=== PATIENT | male | born 1965 | race Caucasian/White ===

== ENCOUNTER 2017-11-30 10:14 | Emergency (ER) | payer OTHER, SELFPAY ==
[2017-11-30 10:35] VITALS: BP 147/94; PULSE 98; RESP 20; TEMP 36.4; O2SAT 97; BMI 39.1
[2017-11-30 10:48] LABS: POC Glucose,Bedside 283 mg/dL
--- NOTE | 2017-11-30 10:53 | HMH.EDUTC ---
[facility] [place] Disposition Clinical Impression: Reflux pharyngitis Uncontrolled diabetes mellitus Qualifiers: Diabetes mellitus type: type 2 Diabetes mellitus complication status: with hyperglycemia Diabetes mellitus detention insulin use: without detention use Qualified Code(s): E11.65 - Type 2 diabetes mellitus with hyperglycemia Disposition: Home, Self-Care Condition on Discharge: Good Instructions: DI for Chest Pain, DI for Gastroesophageal Reflux Disease (GERD), DI for Diabetes Type 2, Lifestyle Changes as Effective as Drugs in Preventing Progression to Diabet Additional Instructions: Start omeprazole for what seems like acid reflux Seek treatment IMMEDIATELY for new, worsening or change in chest pain. you understand we did NOT rule out a cardiac cause today. You were offered a transfer to ER for this and declined. Follow up VERY important. Go TODAY and find a new PCP and schedule new patient appointment Be sure to communicate with your PCP. IF they don't know the medications are not agreeing with you or are too expensive, they can't find a better alternative for you. Remember the complications of uncontrolled DM that explain the majority of your symptoms. We discussed the risks and you need to get your diabetes under control IMMEDIATELY. Prescriptions: Omeprazole [Omeprazole 20mg Capsule] 20 mg PO DAILY #30 cap Time of Disposition: 11:37 Medical Decision Making Vital Signs: 11/30/17 10:35 Temperature 97.6 F Temperature Source Temporal Artery Scan Pulse Rate [Brachial] 98 H Respiratory Rate 20 Blood Pressure [Left Arm] 147/94 Blood Pressure Mean [Left Arm] 111 Blood Pressure Source [Left Arm] Automatic Cuff Blood Pressure Position [Left Arm] Sitting 02 Sat by Pulse Oximetry 97 Oxygen Delivery Method Room Air - Lab Data Lab results reviewed: Yes: I reviewed the patient's lab results. Lab Results 11/30/17 10:40: POC Glucose 283 11/30/17 10:41: Glucose Fingerstick 283 H Orders (Tests/Meds): ED MEDICATIONS Discontinued Medications Generic Name Dose Route Start Last Admin Trade Name Freq PRN Reason Stop Dose Admin Belladonna Alkaloids 60 ml 11/30/17 10:52 11/30/17 10:59 Gi Cocktail 60ml Udc PO 11/30/17 10:53 60 ml ONCE ONE Administration - Enoc Inquiry Pt receiving controlled substance: No - Reevaluation(s) Time: 11:25 Reevaluation #1: Pt reports chest pain improved with GI cocktail but not resolved. We discussed possible differentials. Pt does NOT want to transfer to ER at this time to r/o cardiac pain. He and his state they understand the risks and plans to find a PCP today while at hospital. He agrees that if pain worsens or changes and/or if new symptoms begin, he will report to ER immediately as directed. [facility] [place] HPI - General Stated complaint: CONGESTED HIGH SUGAR Time Seen by Provider: 11/30/17 10:40 Mode of Arrival: Ambulatory Source of Information: Patient Limitations: No Limitations Description of Symptoms (Recalled from Triage Doc. by RN): DOESN'T FEEL WELL MAYBE HIS SUGAR IS HIGH. HAS NOT TAKEN HIS DIABETIC MEDICINIE SINCE AROUND ANGE. IT COST TO MUCH. HEENT Symptoms (Recalled from RN notes): No Resp Symptoms (Recalled from RN notes): No Skin Symptoms (Recalled from RN notes): No MS Symptoms (Recalled from RN notes): No Functional Status (Recalled from RN notes): NA - History of Present Illness Provider Complaint: c/o just not feeling well . Initially reports ongoing x 2-3 days but then the more he talks, actually ongoing for weeks and some symptoms, months. Primarily here because he read a sign yesterday at his dad's appt about the sings of a heart attack and wants to be sure that he isn't having one and that his blood sugar is ok. (I immediately intervened and discussed [facility] Guidelines and transfer to ER for cardiac workup. Pt refused because heard his insurance wouldn't pay if it was nothing . Wants to be fully evaluated before deciding about ER.) Wo
--- NOTE | 2017-11-30 11:01 | ED_ITS ---
[facility] [place]ression: Reflux pharyngitis Uncontrolled diabetes mellitus Qualifiers: Diabetes mellitus type: type 2 Diabetes mellitus complication status: with hyperglycemia Diabetes mellitus roasterman insulin use: without senior care use Qualified Code(s): E11.65 - Type 2 diabetes mellitus with hyperglycemia Disposition: Home, Self-Care Condition on Discharge: Good Instructions: DI for Chest Pain, DI for Gastroesophageal Reflux Disease (GERD) , DI for Diabetes Type 2, Lifestyle Changes as Effective as Drugs in Preventing Progression to Diabet Additional Instructions: Start omeprazole for what seems like acid reflux Seek treatment IMMEDIATELY for new, worsening or change in chest pain. you understand we did NOT rule out a cardiac cause today. You were offered a transfer to ER for this and declined. Follow up VERY important. Go TODAY and find a new PCP and schedule new patient appointment Be sure to communicate with your PCP. IF they don't know the medications are not agreeing with you or are too expensive, they can't find a better alternative for you. Remember the complications of uncontrolled DM that explain the majority of your symptoms. We discussed the risks and you need to get your diabetes under control IMMEDIATELY. Prescriptions: Omeprazole [Omeprazole 20mg Capsule] 20 mg PO DAILY #30 cap Time of Disposition: 11:37 Medical Decision Making Vital Signs: 11/30/17 10:35 Temperature 97.6 F Temperature Source Temporal Artery Scan Pulse Rate [Brachial] 98 H Respiratory Rate 20 Blood Pressure [Left Arm] 147/94 Blood Pressure Mean [Left Arm] 111 Blood Pressure Source [Left Arm] Automatic Cuff Blood Pressure Position [Left Arm] Sitting 02 Sat by Pulse Oximetry 97 Oxygen Delivery Method Room Air - Lab Data Lab results reviewed: Yes: I reviewed the patient's lab results. Lab Results 11/30/17 10:40: POC Glucose 283 11/30/17 10:41: Glucose Fingerstick 283 H Orders (Tests/Meds): ED MEDICATIONS Discontinued Medications Generic Name Dose Route Start Last Admin Trade Name Freq PRN Reason Stop Dose Admin Belladonna Alkaloids 60 ml 11/30/17 10:52 11/30/17 10:59 Gi Cocktail 60ml Udc PO 11/30/17 10:53 60 ml ONCE ONE Administration - Enoc Inquiry Pt receiving controlled substance: No - Reevaluation(s) Time: 11:25 Reevaluation #1: Pt reports chest pain improved with GI cocktail but not resolved. We discussed possible differentials. Pt does NOT want to transfer to ER at this time to r/o cardiac pain. He and his state they understand the risks and plans to find a PCP today while at hospital. He agrees that if pain worsens or changes and/or if new symptoms begin, he will report to ER immediately as directed. [facility] [place] General Stated complaint: CONGESTED HIGH SUGAR Time Seen by Provider: 11/30/17 10:40 Mode of Arrival: Ambulatory Source of Information: Patient Limitations: No Limitations Description of Symptoms (Recalled from Triage Doc. by RN): DOESN'T FEEL WELL MAYBE HIS SUGAR IS HIGH. HAS NOT TAKEN HIS DIABETIC MEDICINIE SINCE AROUND ANGE. IT COST TO MUCH. HEENT Symptoms (Recalled from RN notes): No Resp Symptoms (Recalled from RN notes): No Skin Symptoms (Recalled from RN notes): No MS Symptoms (Recalled from RN notes): No Functional Status (Recalled from RN notes): NA - History of Present Illness Pro
== END 2017-11-30 11:39 | disposition home or self-care (01) ==
PROVIDERS: Emergency Provider Nurse Practitioner Family
DX: E11.65 Type 2 diabetes mellitus with hyperglycemia (principal); J02.9 Acute pharyngitis, unspecified; K21.9 Gastro-esophageal reflux disease without esophagitis; T38.3X6A Underdosing of insulin and oral hypoglycemic [antidiabetic] drugs, initial encounter; Z91.120 Patient's intentional underdosing of medication regimen due to financial hardship; I10 Essential (primary) hypertension; F17.210 Nicotine dependence, cigarettes, uncomplicated; E78.5 Hyperlipidemia, unspecified; Z79.02 Long term (current) use of antithrombotics/antiplatelets; Z79.899 Other long term (current) drug therapy; Z88.0 Allergy status to penicillin
CPT/HCPCS: 82962; 99202

== ENCOUNTER 2017-12-01 23:33 | Observation (INO) | payer OTHER, SELFPAY ==
[2017-12-01 23:33] VITALS: BP 157/84; PULSE 88; RESP 18; TEMP 36.8; O2SAT 97; BMI 39.1
--- NOTE | 2017-12-01 23:42 | XR_ITS ---
XR chest 2V HISTORY: ITS.REASON: CHEST PAIN ORDERING PHYSICIAN: Evens Fletcher MD PATIENT AGE: 52 years COMPARISON: None available FINDINGS: The cardiomediastinal silhouette and pulmonary vascularity are within normal limits. The lungs are clear without infiltrates, suspicious nodules, or pleural effusions. No acute bony abnormalities. IMPRESSION: Negative chest, no acute finding
--- NOTE | 2017-12-01 23:48 | PC.NURSE ---
PT REPORTS HE IS ALLERGIC TO ASA AND THAT HE BREAKS OUT IN A RASH ALL OVER
[2017-12-02] VITALS (29 sets, daily range): BP systolic 108–151; BP diastolic 60–96; PULSE 47–100; RESP 18–20; TEMP 36.4–36.7; O2SAT 94–98; BMI 38.4; BMI 38.5
[2017-12-02 00:18] LABS: Basophils # 0.1 K/mm3 (0-0.2); Basophils % 0.5 % (0.1-2.0); Eosinophils # 0.3 K/mm3 (0.0-0.4); Eosinophils % 3.1 % (0.1-12.0); Lymphocytes # 2.3 K/mm3 (0.7-4.5); Lymphocytes % 20.2 K/mm3 (10-50); Mean Corpuscular HGB Conc 31.8 g/dL (31.8-35.4); Mean Corpuscular Hemoglobin 27.7 pg (27.0-31.2); Mean Corpuscular Volume 87.1 fl (80-94); Mean Platelet Volume 8.5 fl (7.4-10.4); Monocytes # 0.5 K/mm3 (0.1-1.0); Monocytes % 4.5 % (1.7-9.3); Neutrophils # 8.1 K/mm3 (1.8-7.8); Neutrophils % 71.8 % (37.0-80.0); Platelet Count 224 K/mm3 (142-424); Red Cell Distribution Width 13.2 % (11.5-17.5); White Blood Count 11.3 K/mm3 (4.8-10.8)
--- NOTE | 2017-12-02 00:19 | HMH.EDCP ---
ED Disposition Clinical Impression: New onset atrial fibrillation, Near syncope Chest pain Qualifiers: Chest pain type: other chest pain Qualified Code(s): R07.89 - Other chest pain Disposition: Admitted As Inpatient Condition on Discharge: Fair Time of Disposition: 01:52 - Critical Care Critical Care Time: No Attestation: On 12/01/17, the high probability of a clinically significant, sudden or life threatening deterioration of the following system(s) required my full and direct attention, intervention and personal management. The time I documented below is in addition to time spent performing reported procedures but includes the following listed in this critical care notation. Medical Decision Making - Medical Records Medical records reviewed: Yes: I reviewed the patient's medical records. Vital Signs: 12/01/17 23:33 12/02/17 02:37 12/02/17 03:16 Temperature 98.3 F Temperature Source Oral Pulse Rate 80 Pulse Rate [Right Radial] 88 Respiratory Rate 18 Blood Pressure [Right Arm] 157/84 Blood Pressure Mean [Right Arm] 108 Blood Pressure Source [Right Arm] Automatic Cuff Blood Pressure Position [Right Arm] Sitting 02 Sat by Pulse Oximetry 97 98 Oxygen Delivery Method Room Air Room Air 12/02/17 03:26 Temperature 97.6 F Temperature Source Oral Pulse Rate Pulse Rate [Right Radial] 82 Respiratory Rate 20 Blood Pressure [Right Arm] 142/81 Blood Pressure Mean [Right Arm] 101 Blood Pressure Source [Right Arm] Automatic Cuff Blood Pressure Position [Right Arm] Sitting 02 Sat by Pulse Oximetry 98 Oxygen Delivery Method Room Air - Lab Data Lab results reviewed: Yes: I reviewed the patient's lab results. Lab Results 12/01/17 23:50: WBC 11.3 H, RBC 5.40, Hgb 15.0, Hct 47.0, MCV 87.1, MCH 27.7, MCHC 31.8, RDW 13.2, Plt Count 224, MPV 8.5, Neut % (Auto) 71.8, Lymph % (Auto) 20.2, [place] % (Auto) 4.5, Eos % (Auto) 3.1, Baso % (Auto) 0.5, Neut # (Auto) 8.1 H, Lymph # (Auto) 2.3, [place] # (Auto) 0.5, Eos # (Auto) 0.3, Baso # (Auto) 0.1 12/01/17 23:50: Sodium 133 L, Potassium 3.6, Chloride 100, Carbon Dioxide 28, Anion Gap 8.6, BUN 10, Creatinine 0.82, Estimated Creat Clear 183, Estimated GFR 99, Est GFR ( Amer) 120, Glucose 300 H, Calcium 8.1 L, Total Bilirubin 0.5, AST 13 L, ALT 29, Alkaline Phosphatase 92, Total Creatine Kinase 70, CK-MB (CK-2) 0.7, CK-MB (CK-2) Rel Index 1.0, Troponin I < 0.02, Total Protein 6.8, Albumin 3.4, Globulin 3.4 H, Albumin/Globulin Ratio 1.0 L 12/02/17 00:00: Amylase 25, Lipase 133, TSH 4.19 H 12/02/17 00:00: D-Dimer < 100 12/02/17 00:00: B-Natriuretic Peptide 5 12/02/17 00:00: Hemoglobin A1c 10.2 H 12/02/17 02:47: POC Glucose 262 Result diagrams: 12/01/17 23:50 12/03/17 07:05 Orders (Tests/Meds): ED MEDICATIONS Discontinued Medications Generic Name Dose Route Start Last Admin Trade Name Freq PRN Reason Stop Dose Admin Atenolol 25 mg 12/02/17 09:00 Tenormin 25mg Tablet PO 01/01/18 08:59 DAILY KRISTINA Atenolol 25 mg 12/02/17 09:00 Tenormin 25mg Tablet PO 01/01/18 08:59 DAILY KRISTINA Atenolol 25 mg 12/02/17 09:00 12/03/17 10:11 Tenormin 25mg Tablet PO 01/01/18 08:59 25 mg DAILY KRISTINA Administration Atorvastatin Calcium 20 mg 12/02/17 09:00 Lipitor 20mg Tablet PO 01/01/18 08:59 DAILY KRISTINA Atorvastatin Calcium 20 mg 12/02/17 09:00 Lipitor 20mg Tablet PO 01/01/18 08:59 DAILY KRISTINA Atorvastatin Calcium 20 mg 12/02/17 21:00 12/02/17 20:10 Lipitor 20mg Tablet PO 01/01/18 20:59 20 mg HS KRISTINA Administration Blood Glucose Test Strips 1 each 12/02/17 11:00 12/03/17 13:24 Fsbs (Bedside Glucose), Results Only !! FS 01/01/18 10:59 Not Given ACHS KRISTINA Clopidogrel Bisulfate 75 mg 12/02/17 09:00 Plavix 75mg Tablet PO 01/01/18 08:59 DAILY KRISTINA Clopidogrel Bisulfate 75 mg 12/02/17 09:00 Plavix 75mg Tablet PO 01/01/18 08:59 DAILY [facility] Clopidogrel Bi
[2017-12-02 00:34] LABS: Amylase 25 U/L (25-125); Lipase 133 u/L (73-393)
[2017-12-02 01:01] LABS: Thyroid Stimulating Hormone 4.19 uIU/ml (0.358-3.740)
[2017-12-02 01:04] LABS: D-Dimer < 100 (0-400)
[2017-12-02 01:08] LABS: Alanine Aminotransferase 29 U/L (12-78); Albumin Level 3.4 gm/dL (3.4-5.0); Alkaline Phosphatase 92 U/L (46-116); Anion Gap 8.6 mEq/L (5-15); Aspartate Amino Transferase 13 U/L (15-37); Bilirubin,Total 0.5 mg/dL (0.2-1.0); Blood Urea Nitrogen 10 mg/dL (7-18); Calcium 8.1 mg/dL (8.5-10.1); Carbon Dioxide 28 mmol/L (21.0-32.0); Chloride 100 mmol/L (98-107); Creatine Kinase 70 U/L (39-308); Creatine Kinase MB 0.7 mg/ml (0.0-3.6); Creatinine Clearance Estimated 183 mL/min (0-300); Creatinine,Serum 0.82 mg/dL (0.70-1.30); Estimated Glomerular Filt Rate 99 ml/min (>60); GFR (African American) 120 ML/MIN (>60); Globulin 3.4 gm/dl (1.3-3.2); Glucose 300 mg/dL (74-106); Potassium 3.6 mmoL/L (3.5-5.1); Sodium 133 mmol/L (136-145); Total Protein,Serum 6.8 gm/dL (6.4-8.2); Troponin I < 0.02 ng/ml (0.00-0.06)
[2017-12-02 02:45] LABS: Hemoglobin A1C 10.2 % (0.0-7.0)
[2017-12-02 02:54] LABS: POC Glucose,Bedside 262 mg/dL
[2017-12-02 04:45] LABS: CKMB Relative Index 0.8 U/L (0-4.0); Creatine Kinase 65 U/L (39-308); Creatine Kinase MB 0.5 mg/ml (0.0-3.6); Troponin I < 0.02 ng/ml (0.00-0.06)
--- NOTE | 2017-12-02 06:56 | CA_ITS ---
PROCEDURE: 2-D M-mode and color Doppler study INDICATIONS FOR THE TEST: Chest pain X COPD Heart Murmur Tobacco Smoking Palpitations Fatigue SyncopeX Edema HypertensionXDiabetes Mellitus Rheumatic Fever SOBXDOE ObesityXHyperlipidemiaX Family History HD Additional History AF PATIENT INFORMATION HEIGHT: 69 WEIGHT:260 GENDER: Male B/P:157/84 2-D/M-MODE INTERPRETATION: 2-D MEASUREMENTS OBSERVED VALUES IN CMS Right Ventricular Dimension (RVDd) 2.4 Interventricular Septum (Thickness)(IVsd) .8 Left Ventricular Internal Dimensions(LVIDd) 5.7 Left Ventricular Posterior Wall (Thickness)(LVPWd) .8 Aortic Root 3.6 Aortic Cusp Separation 2.0 Left Atrial Dimensions (LAD) 4.3 2D 1. Left atrium is mildly enlarged, left ventricle is normal size, there is mild qualitative concentric left ventricular hypertrophy present, visually estimated ejection fraction 50% with mild anteroseptal wall hypokinesis. 2. The right atrium and right ventricle are normal size and contractility. 3. The aortic valve is thickened and calcified leaflet continue to display mobility. 4. The mitral valve has mild mitral calcification. 5. The pulmonic valve is poorly visualized. 6. The tricuspid valve is structurally normal. 7. No significant pericardial effusion noted. DOPPLER INTERROGATION: Doppler interrogation of the aortic, mitral and tricuspid valvular presence of mild mitral and tricuspid regurgitation, tricuspid regurgitant jet velocity insufficient for calculation of the right ventricular systolic pressure, diastolic parameters are inconclusive. CONCLUSION: 1. Mildly enlarged left atrium, normal left ventricular size, mild qualitative concentric left ventricular hypertrophy, visually estimated ejection fraction 50% with mild anteroseptal wall hypokinesis. Diastolic parameters are inconclusive. 2. Mild mitral and tricuspid regurgitation. 3. No significant pericardial effusion noted.
--- NOTE | 2017-12-02 07:28 | P.CONPHA_ITS ---
[facility] Pharmacy VTE Monitoring - Patient Demographics Admission date: 12/02/17 Report Date: 12/02/17 Time: 07:28 Allergies/Adverse Reactions: Patient Allergies aspirin Allergy (Severe, Verified 12/01/17 23:39) Hives Penicillins Allergy (Severe, Verified 12/01/17 23:39) Anaphylaxis Height: 1.75 m Weight: 117.934 kg Patient Problems: Current Active Problems Chest pain (Acute) New onset atrial fibrillation (Acute) Near syncope (Acute) - VTE Risk Labs: VTE Related Lab Results Hgb 15.0 g/dL (14.1-18.0) 12/01/17 23:50 Hct 47.0 % (42.0-52.0) 12/01/17 23:50 Plt Count 224 K/mm3 (142-424) 12/01/17 23:50 BUN 10 mg/dL (7-18) 12/01/17 23:50 Creatinine 0.82 mg/dL (0.70-1.30) 12/01/17 23:50 Estimated Creat Clear 183 mL/min (0-300) 12/01/17 23:50 Was VTE Risk Assessment Performed: Yes VTE Score: 2 VTE Risk Level: Low Risk Clinical Trial Participant: No - Prophylaxis VTE Prophylaxis Ordered?: Yes Types of VTE Prophylaxis: TEDS Knee High Location of Applied Device: Not Applicable
--- NOTE | 2017-12-02 08:34 | HMH.HP ---
*Admission Date: 12/02/17 *Chief complaint: CP, dizziness *History of present illness: Mr. Pugh is a 52-year-old male with a history of hypertension, diabetes, hyperlipidemia, and asthma. For the past month he has been having transient episodes of chest pain and dizziness. He felt like he was having reflux, therefore on Tuesday he went to the clinic and was given a prescription for an antacid. He states yesterday he fed cows, ate dinner, and began having another dizzy spell with chest pain. He looked it up on the Internet and felt like he probably should come to the emergency room. He did feel his heart racing. Once he presented to the emergency room, he was evaluated and found to be in atrial fib. He was admitted with a cardiology consult. Of note, he has a strong family history of cardiac dysrhythmias. [facility] History Medical History: Reports:: Asthma, Diabetes Mellitus Type 2 (DOES NOT TAKE HIS MEDICATION DUE TO COST), Hyperlipidemia, Hypertension Laterality Cases: Left: Arthroscopy Shoulder Other Surgeries: Yes: Other (left surgery, right leg) Fractures: Yes Comment: ear tubes, mastoid surgery, left shoulder surgery, right leg surgery - *Social History Smoking Status: Current every day smoker Tobacco Type: smokeless tobacco Alcohol Intake: never Alcohol Intake Frequency:: a few times a month Occupational Status: employed Housing: house Household Members: spouse, children - Psychiatric History Expresses thoughts of harming self/others: None Suicide Plan Description: No Plan *Family Hx:: Cancer, Coronary Artery Disease, Diabetes, Heart Attack, Hyperlipidemia, Hypertension Comment: cardiac dysrhythmia Review of Systems - Constitutional Denies fatigue, Denies weakness - Eyes Denies blurry vision, Denies double vision - ENT Denies nasal congestion, Denies sore throat - *Cardiovascular Reports chest pain, Reports shortness of breath, Reports irregular heart rhythm - *Gastrointestinal Reports heartburn, Denies abdominal pain, Denies nausea, Denies vomiting - *Genitourinary Denies difficulty urinating, Denies painful urination - *Musculoskeletal Denies joint pain - *Neurologic Reports dizziness, Denies weakness Meds Home Medications Medication Instructions Recorded Confirmed Type Atorvastatin Calcium [Atorvastatin 20 mg PO DAILY 11/30/17 12/02/17 History 20mg Tab] Clopidogrel Bisulfate [Plavix 75mg 75 mg PO DAILY 11/30/17 12/02/17 History Tab] Lisinopril [Lisinopril 10mg Tab] 10 mg PO DAILY 11/30/17 12/02/17 History Omeprazole [Omeprazole 20mg 20 mg PO DAILY 12/01/17 12/02/17 History Capsule] Alpha Lipoic Acid 200 mg PO BID 12/02/17 12/02/17 History Sitagliptin Phosphate [Januvia] 100 mg PO DAILY 12/02/17 12/02/17 History Allergies Allergy/AdvReac Type Severity Reaction Status Date / Time aspirin Allergy Severe Hives Verified 12/01/17 23:39 Penicillins Allergy Severe Anaphylaxis Verified 12/01/17 23:39 Exam Vital signs and Labs for Last 24 Hours: Temp Pulse Resp BP Pulse Ox 97.6 F 82 20 142/81 98 12/02/17 03:26 12/02/17 03:26 12/02/17 03:26 12/02/17 03:26 12/02/17 03:26 Lab Results 12/01/17 23:50: WBC 11.3 H, RBC 5.40, Hgb 15.0, Hct 47.0, MCV 87.1, MCH 27.7, MCHC 31.8, RDW 13.2, Plt Count 224, MPV 8.5, Neut % (Auto) 71.8, Lymph % (Auto) 20.2, [place] % (Auto) 4.5, Eos % (Auto) 3.1, Baso % (Auto) 0.5, Neut # (Auto) 8.1 H, Lymph # (Auto) 2.3, [place] # (Auto) 0.5, Eos # (Auto) 0.3, Baso # (Auto) 0.1 12/01/17 23:50: Sodium 133 L, Potassium 3.6, Chloride 100, Carbon Dioxide 28, Anion Gap 8.6, BUN 10, Creatinine 0.82, Estimated Creat Clear 183, Estimated GFR 99, Est GFR ( Amer) 120, Glucose 300 H, Calcium 8.1 L, Total Bilirubin 0.5, AST 13 L, ALT 29, Alkaline Phosphatase 92, Total Creatine Kinase 70, CK-MB (CK-2) 0.7, CK-MB (CK-2) Rel Index 1.0, Troponin I < 0.02, Total Protein 6.8, Albumin 3.4, Globulin 3.4 H, Albumin/Globulin Ratio 1.0 L 12/02/17 00:00:
--- NOTE | 2017-12-02 08:38 | P.HP_ITS ---
*Admission Date: 12/02/17 *Chief complaint: CP, dizziness *History of present illness: Mr. Pugh is a 52-year-old male with a history of hypertension, diabetes, hyperlipidemia, and asthma. For the past month he has been having transient episodes of chest pain and dizziness. He felt like he was having reflux, therefore on Tuesday he went to the clinic and was given a prescription for an antacid. He states yesterday he fed cows, ate dinner, and began having another dizzy spell with chest pain. He looked it up on the Internet and felt like he probably should come to the emergency room. He did feel his heart racing. Once he presented to the emergency room, he was evaluated and found to be in atrial fib. He was admitted with a cardiology consult. Of note, he has a strong family history of cardiac dysrhythmias. [facility] History Medical History: Reports:: Asthma, Diabetes Mellitus Type 2 (DOES NOT TAKE HIS MEDICATION DUE TO COST), Hyperlipidemia, Hypertension Laterality Cases: Left: Arthroscopy Shoulder Other Surgeries: Yes: Other (left surgery, right leg) Fractures: Yes Comment: ear tubes, mastoid surgery, left shoulder surgery, right leg surgery - *Social History Smoking Status: Current every day smoker Tobacco Type: smokeless tobacco Alcohol Intake: never Alcohol Intake Frequency:: a few times a month Occupational Status: employed Housing: house Household Members: spouse, children - Psychiatric History Expresses thoughts of harming self/others: None Suicide Plan Description: No Plan *Family Hx:: Cancer, Coronary Artery Disease, Diabetes, Heart Attack, Hyperlipidemia, Hypertension Comment: cardiac dysrhythmia Review of Systems - Constitutional Denies fatigue, Denies weakness - Eyes Denies blurry vision, Denies double vision - ENT Denies nasal congestion, Denies sore throat - *Cardiovascular Reports chest pain, Reports shortness of breath, Reports irregular heart rhythm - *Gastrointestinal Reports heartburn, Denies abdominal pain, Denies nausea, Denies vomiting - *Genitourinary Denies difficulty urinating, Denies painful urination - *Musculoskeletal Denies joint pain - *Neurologic Reports dizziness, Denies weakness Meds Home Medications Medication Instructions Recorded Confirmed Type Atorvastatin Calcium [Atorvastatin 20 mg PO DAILY 11/30/17 12/02/17 History 20mg Tab] Clopidogrel Bisulfate [Plavix 75mg 75 mg PO DAILY 11/30/17 12/02/17 History Tab] Lisinopril [Lisinopril 10mg Tab] 10 mg PO DAILY 11/30/17 12/02/17 History Omeprazole [Omeprazole 20mg 20 mg PO DAILY 12/01/17 12/02/17 History Capsule] Alpha Lipoic Acid 200 mg PO BID 12/02/17 12/02/17 History Sitagliptin Phosphate [Januvia] 100 mg PO DAILY 12/02/17 12/02/17 History Allergies Allergy/AdvReac Type Severity Reaction Status Date / Time aspirin Allergy Severe Hives Verified 12/01/17 23:39 Penicillins Allergy Severe Anaphylaxis Verified 12/01/17 23:39 Exam Vital signs and Labs for Last 24 Hours: Temp Pulse Resp BP Pulse Ox 97.6 F 82 20 142/81 98 12/02/17 03:26 12/02/17 03:26 12/02/17 03:26 12/02/17 03:26 12/02/17 03:26 Lab Results 12/01/17 23:50: WBC 11.3 H, RBC 5.40, Hgb 15.0, Hct 47.0, MCV 87.1, MCH 27.7, MCHC 31.8, RDW 13.2, Plt Count 224, MPV 8.5, Neut % (Auto) 71.8, Lymph % (Auto) 20.2, [place] % (Auto) 4.5, Eos % (Auto) 3.1, Baso % (Auto) 0.5, Neut # (Auto) 8.1 H,
--- NOTE | 2017-12-02 10:44 | HMH.NBBLANK ---
[facility] Blank Note Date: 12/02/17 Time: 10:45 Narrative:: Brief cardiology consult note Mr. Pugh is a pleasant 52-year-old gentleman with history of hypertension, hyperlipidemia and diabetes, untreated obstructive sleep apnea. Strong family history for coronary artery disease. He presented to the hospital with chest discomfort and near syncopal episode. He has been physically very active [place], for the last 1-1/2 month he has been experiencing midsternal chest discomfort with exertion relieved with rest, associated with shortness of breath which is progressively getting worse. He also noticed palpitations and racing heart and near syncopal episode. He came into the hospital his initial EKG was read as atrial fibrillation with rapid ventricular response, currently he is in sinus rhythm with PACs. He describes no orthopnea PND fever chills nausea vomiting he denies any hematemesis melena. He has stress test about a year and a half ago according to him it was normal. Allergies: Aspirin and penicillin Social history: He currently does not smoke, but used tobacco he denies any drug or alcohol. Family history: Positive for coronary artery disease. Review of system: As described above. Medications: Home Medications Atorvastatin Calcium [Atorvastatin 20mg Tab] 20 mg PO DAILY 11/30/17 [History Confirmed 12/02/17] Clopidogrel Bisulfate [Plavix 75mg Tab] 75 mg PO Q48H 11/30/17 [History Confirmed 12/02/17] Lisinopril [Lisinopril 10mg Tab] 10 mg PO DAILY 11/30/17 [History Confirmed 12/02/17] Omeprazole [Omeprazole 20mg Capsule] 20 mg PO DAILY 12/01/17 [History Confirmed 12/02/17] Alpha Lipoic Acid 200 mg PO BID 12/02/17 [History Confirmed 12/02/17] Sitagliptin Phosphate [Januvia] 100 mg PO DAILY 12/02/17 [History Confirmed 12/02/17] Atenolol (Tenormin 25mg Tablet) 25 mg PO DAILY [facility] Stop: 01/01/18 08:59 Atorvastatin Calcium (Lipitor 20mg Tablet) 20 mg PO HS [facility] Stop: 01/01/18 20:59 Blood Glucose Test Strips (Fsbs (Bedside Glucose), Results Only !!) 1 each FS ACHS [facility] Stop: 01/01/18 10:59 Clopidogrel Bisulfate (Plavix 75mg Tablet) 75 mg PO DAILY REPLACED BY [facility] Stop: 01/01/18 08:59 Insulin Human Lispro (Humalog 100 Units/Ml 3ml Vial (Ssi)) 0 unit SQ ACHS REPLACED BY [facility] PRN Reason: Protocol Stop: 01/01/18 10:59 Lisinopril (Zestril 10mg Tablet) 10 mg PO DAILY REPLACED BY [facility] Stop: 01/01/18 08:59 Pantoprazole Sodium (Protonix 40mg Tablet) 20 mg PO DAILY REPLACED BY [facility] Stop: 01/01/18 08:59 Past medical history: 1. Hypertension 2. Diabetes mellitus 3. Hyperlipidemia. 4. Obstructive sleep apnea. 5. No history of CVA, TIA or prior myocardial infarction. Physical exam: Vital Signs - 24 hr 12/01/17 23:33 12/02/17 02:37 12/02/17 03:16 Temperature 98.3 F Pulse Rate 80 Pulse Rate [Right Radial] 88 Respiratory Rate 18 Blood Pressure [Right Arm] 157/84 02 Sat by Pulse Oximetry 97 98 12/02/17 03:26 12/02/17 08:00 Temperature 97.6 F 97.8 F Pulse Rate Pulse Rate [Right Radial] 82 47 L Respiratory Rate 20 18 Blood Pressure [Right Arm] 142/81 150/75 02 Sat by Pulse Oximetry 98 96 HEENT exam: No JVP, no bruit no thyromegaly Lungs are clear to auscultation Cardiac exam: S1-S2, no S3 Abdomen: Soft bowel sounds present Extremity: Without clubbing cyanosis or edema Diabetes panel 12/01/17 12/02/17 Range/Units 23:50 00:00 Sodium 133 L (136-145) mmol/L Potassium 3.6 (3.5-5.1) mmoL/L Chloride 100 (98-107) mmol/L Carbon Dioxide 28 (21.0-32.0) mmol/L BUN 10 (7-18) mg/dL Creatinine 0.82 (0.70-1.30) mg/dL Glucose 300 H (74-106) mg/dL Hemoglobin A1c 10.2 H (0.0-7.0) % Calcium 8.1 L (8.5-10.1) mg/dL AST 13 L (15-37) U/L ALT 29 (12-78) U/L Alkaline Phosphatase 92 (46-116) U/L Total Protein 6.8 (6.4-8.2) gm/dL Albumin 3.4 (3.4-5.0) gm/dL Thyroid panel 12/02/17 Range/Units 00:00 TSH 4.19 H (0.358-3.740) uIU/ml Calcium panel 12/01/17 Range/Units 23:50 Calcium 8.1 L
--- NOTE | 2017-12-02 10:54 | P.PN_ITS ---
[facility] Blank Note Date: 12/02/17 Time: 10:45 Narrative:: Brief cardiology consult note Mr. Pugh is a pleasant 52-year-old gentleman with history of hypertension, hyperlipidemia and diabetes, untreated obstructive sleep apnea. Strong family history for coronary artery disease. He presented to the hospital with chest discomfort and near syncopal episode. He has been physically very active [place], for the last 1-1/2 month he has been experiencing midsternal chest discomfort with exertion relieved with rest, associated with shortness of breath which is progressively getting worse. He also noticed palpitations and racing heart and near syncopal episode. He came into the hospital his initial EKG was read as atrial fibrillation with rapid ventricular response, currently he is in sinus rhythm with PACs. He describes no orthopnea PND fever chills nausea vomiting he denies any hematemesis melena. He has stress test about a year and a half ago according to him it was normal. Allergies: Aspirin and penicillin Social history: He currently does not smoke, but used tobacco he denies any drug or alcohol. Family history: Positive for coronary artery disease. Review of system: As described above. Medications: Home Medications Atorvastatin Calcium [Atorvastatin 20mg Tab] 20 mg PO DAILY 11/30/17 [History Confirmed 12/02/17] Clopidogrel Bisulfate [Plavix 75mg Tab] 75 mg PO Q48H 11/30/17 [History Confirmed 12/02/17] Lisinopril [Lisinopril 10mg Tab] 10 mg PO DAILY 11/30/17 [History Confirmed ] Omeprazole [Omeprazole 20mg Capsule] 20 mg PO DAILY 12/01/17 [History Confirmed 12/02/17] Alpha Lipoic Acid 200 mg PO BID 12/02/17 [History Confirmed 12/02/17] Sitagliptin Phosphate [Januvia] 100 mg PO DAILY 12/02/17 [History Confirmed ] Atenolol (Tenormin 25mg Tablet) 25 mg PO DAILY [facility] Stop: 01/01/18 08:59 Atorvastatin Calcium (Lipitor 20mg Tablet) 20 mg PO HS [facility] Stop: 01/01/18 20:59 Blood Glucose Test Strips (Fsbs (Bedside Glucose), Results Only !!) 1 each FS ACHS [facility] Stop: 01/01/18 10:59 Clopidogrel Bisulfate (Plavix 75mg Tablet) 75 mg PO DAILY [facility] Stop: 01/01/18 08:59 Insulin Human Lispro (Humalog 100 Units/Ml 3ml Vial (Ssi)) 0 unit SQ ACHS [facility] PRN Reason: Protocol Stop: 01/01/18 10:59 Lisinopril (Zestril 10mg Tablet) 10 mg PO DAILY [facility] Stop: 01/01/18 08:59 Pantoprazole Sodium (Protonix 40mg Tablet) 20 mg PO DAILY [facility] Stop: 01/01/18 08:59 Past medical history: 1. Hypertension 2. Diabetes mellitus 3. Hyperlipidemia. 4. Obstructive sleep apnea. 5. No history of CVA, TIA or prior myocardial infarction. Physical exam: Vital Signs - 24 hr 12/01/17 23:33 12/02/17 02:37 12/02/17 03:16 Temperature 98.3 F Pulse Rate 80 Pulse Rate [Right Radial] 88 Respiratory Rate 18 Blood Pressure [Right Arm] 157/84 02 Sat by Pulse Oximetry 97 98 12/02/17 03:26 12/02/17 08:00 Temperature 97.6 F 97.8 F Pulse Rate Pulse Rate [Right Radial] 82 47 L Respiratory Rate 20 18 Blood Pressure [Right Arm] 142/81 150/75 02 Sat by Pulse Oximetry 98 96 HEENT exam: No JVP, no bruit no thyromegaly Lungs are clear to auscultation Cardiac exam: S1-S2, no S3 Abdomen: Soft bowel sounds present Extremity: Without clubbing cyanosis or edema Diabetes panel 12/01/17 12/02/17 Range/Units 23:50 00:00 Sodium 133 L (136-145) mmol/L Potassium 3.6 (3.5-5.1) mmoL/L Chloride
--- NOTE | 2017-12-02 10:56 | IR_ITS ---
CARDIAC CATHETERIZATION DATE OF CATHETERIZATION:12/02/2017 12:38 PM PROCEDURES: 1. Left heart catheterization 2. Left ventriculogram 3. Selective coronary angiogram 4. Drug-eluting stent deployment to the proximal LAD INDICATION FOR TEST: 1. Acute coronary syndrome/unstable angina 2. Coronary artery disease Informed consent was obtained prior to the procedure. COMPLICATIONS: None ESTIMATED BLOOD LOSS: Less than 10 ml. TECHNIQUE: One percent lidocaine used to anesthetize the right anterior aspect of the wrist. The right radial artery was accessed via the Seldinger technique. A 6 Uzbek sheath was placed in the right radial artery. 2.5 mg of verapamil, 800 mcg of nitroglycerin and 5000 U Heparin were given through the arterial sheath. The trap catheter was also used to perform left heart catheterization left ventriculogram and selective coronary angiography. At the end of the diagnostic angiogram and additional 9000 units of heparin was administered intravenously giving an ACT out of range. An [employer] left guide catheter was used intubate the left main artery and a BMW wire was placed in the distal segment of the LAD. A 3.5 x 22 mm resolute John stent was deployed at 18 ana reducing the stenosis to 20%. 4 mm x 6 mm noncompliant balloon was placed in the distal segment approximately 3 mm proximal to the distal aspect of the stent and deployed at 20 ana distally mid segment proximally and ostially. Excellent angiographic results were obtained with ANGELO-3 flow down the vessel before and after the procedure. Patient was already taking Plavix before the procedure and this 75 mg daily will be continued. The sheath was removed good hemostasis was achieved using TR banding patient was transferred to the postop holding area in stable condition ANGIOGRAPHIC RESULTS: 1. The left main artery normal 2. The left anterior descending artery has proximal concentric 70-80% stenosis with a mid and distal segments being normal 3. The circumflex artery gives rise to a large ramus intermedius which has a proximal tendon 20% stenosis. The circumflex artery itself has a proximal concentric 30% stenosis 4. The right coronary artery is a dominant vessel has 20% stenoses throughout its proximal mid and distal course 5. The FORD ventriculogram reveals normal 65% 6. The left ventricular end-diastolic pressure 15 mmHg IMPRESSION: 1. Severe single vessel coronary disease involving the proximal LAD 2. Successful stenting the proximal LAD severe disease reduced to 0% with 1 drug-eluting stent 3. Mild to moderate disease as described above in the circumflex artery ramus intermedius and right coronary artery 4. Normal ejection fraction 5. Mildly elevated LVEDP PLAN: 1. Aspirin Plavix daily 2. LDL less than 55 3. Cardiac rehabilitation 4. Avoidance of tobacco products 5. Risk factor modification
[2017-12-02 11:44] LABS: Alanine Aminotransferase 33 U/L (12-78); Albumin Level 3.7 gm/dL (3.4-5.0); Alkaline Phosphatase 97 U/L (46-116); Anion Gap 13.8 mEq/L (5-15); Aspartate Amino Transferase 14 U/L (15-37); Bilirubin,Total 0.7 mg/dL (0.2-1.0); Blood Urea Nitrogen 9 mg/dL (7-18); Calcium 8.7 mg/dL (8.5-10.1); Carbon Dioxide 27 mmol/L (21.0-32.0); Chloride 101 mmol/L (98-107); Creatinine Clearance Estimated 194 mL/min (0-300); Creatinine,Serum 0.76 mg/dL (0.70-1.30); Estimated Glomerular Filt Rate 109 ml/min (>60); GFR (African American) 131 ML/MIN (>60); Globulin 3.6 gm/dl (1.3-3.2); Glucose 264 mg/dL (74-106); Potassium 3.8 mmoL/L (3.5-5.1); Sodium 138 mmol/L (136-145); Total Protein,Serum 7.3 gm/dL (6.4-8.2)
[2017-12-02 11:53] LABS: Creatine Kinase 52 U/L (39-308); Creatine Kinase MB 0.5 mg/ml (0.0-3.6); Troponin I < 0.02 ng/ml (0.00-0.06)
--- NOTE | 2017-12-02 12:12 | SUR.PREOP ---
PT ARRIVED PER WC FROM MED SURG FLOOR AND TAKEN STRAIGHT TO PROCEDURE ROOM. PT IN STABLE CONDITION WITHOUT ANY ACUTE DISTRESS NOTED AT TIME OF ARRIVAL.
--- NOTE | 2017-12-02 12:26 | PC.NURSE ---
pt off the floor at 1200 rounding. no vitals.
--- NOTE | 2017-12-02 12:35 | PC.NURSE ---
RECIEVED NOTIFICATION THAT PATIENT WILL BE TRANSFERED TO [facility]
--- NOTE | 2017-12-02 13:39 | PC.NURSE ---
bedside report received from benson cortés rn and lynette stein rn. site and tracelet verified with staff
[2017-12-02 13:49] LABS: CATHL Activated Clotting Time > 400 SEC (74-125)
[2017-12-02 22:07] LABS: POC Glucose,Bedside 311 mg/dL
[2017-12-03] VITALS (7 sets, daily range): BP systolic 107–141; BP diastolic 59–84; PULSE 67–83; RESP 16–20; TEMP 36.5–37; O2SAT 96–98
--- NOTE | 2017-12-03 04:32 | PC.NURSE ---
PT IS A&OX3. LUNG SOUNDS CTA. NORMAL BOWEL SOUNDS. DENIES PAIN. NSR ON TELEMETRY. S/P HEART CATH WITH RIGHT RADIAL DSG. DSG IS C/D/I. POSITIVE RADIAL AND PEDAL PULSES. CAPILLARY REFILL <3. PT EDUCATED NOT TO PUSH, PULL, OR STRAIN RIGHT ARM. EDUCATED TO CALL NURSE IF HE BEGINS TO HAVE ANY FEELS OF PULSATING, THROBBING, OR NOTICES ANY SWELLING, BLEEDING, OR BRUISING. HIS SPOUSE IS AT THE BEDSIDE. HE RECEIVED INSULIN FOR ELEVATED BLOOD GLUCOSE.
[2017-12-03 06:24] LABS: POC Glucose,Bedside 197 mg/dL
--- NOTE | 2017-12-03 07:29 | PC.NURSE ---
REPORT GIVEN TO KAISER SULLIVAN RN.
--- NOTE | 2017-12-03 07:54 | PC.NURSE ---
REPORT HANDOFF TO Josemanuel STARKS
[2017-12-03 08:09] LABS: Blood Urea Nitrogen 12 mg/dL (7-18); Carbon Dioxide 30 mmol/L (21.0-32.0); Chloride 102 mmol/L (98-107); Creatinine Clearance Estimated 165 mL/min (0-300); Creatinine,Serum 0.88 mg/dL (0.70-1.30); Estimated Glomerular Filt Rate 92 ml/min (>60); GFR (African American) 111 ML/MIN (>60); Glucose 237 mg/dL (74-106); Sodium 137 mmol/L (136-145)
--- NOTE | 2017-12-03 09:05 | HMH.ACPN2 ---
Internal Medicine - PN: Subj *Date: 12/03/17 *Time: 09:05 Interval history: States he is feeling much better today. He had a heart cath yesterday and had a stent placed. He is currently in normal sinus rhythm and has not had any more chest pain or dizzy spells. He is anxious to go home. Exam Vital signs and Labs for Last 24 Hours: Temp Pulse Resp BP Pulse Ox 97.7 F 77 16 139/84 96 12/03/17 04:00 12/03/17 06:00 12/03/17 06:00 12/03/17 06:00 12/03/17 06:00 Laboratory Results - last 24 hr 12/02/17 11:10: Total Creatine Kinase 52, CK-MB (CK-2) 0.5, CK-MB (CK-2) Rel Index 1.0, Troponin I < 0.02 12/02/17 11:10: Sodium 138, Potassium 3.8, Chloride 101, Carbon Dioxide 27, Anion Gap 13.8, BUN 9, Creatinine 0.76, Estimated Creat Clear 194, Estimated GFR 109, Est GFR ( Amer) 131, Glucose 264 H, Calcium 8.7, Total Bilirubin 0.7, AST 14 L, ALT 33, Alkaline Phosphatase 97, Total Protein 7.3, Albumin 3.7, Globulin 3.6 H, Albumin/Globulin Ratio 1.0 L 12/02/17 12:32: Activated Clotting Time > 400 H* 12/02/17 19:54: POC Glucose 311 12/03/17 06:16: POC Glucose 197 12/03/17 07:05: Sodium 137, Potassium 4.0, Chloride 102, Carbon Dioxide 30, Anion Gap 9.0, BUN 12 D, Creatinine 0.88, Estimated Creat Clear 165, Estimated GFR 92, Est GFR ( Amer) 111, Glucose 237 H I & O for Last 24 hours: Intake & Output 11/30/17 12/01/17 12/02/17 12/03/17 11:59 11:59 11:59 11:59 Intake Total 0 / 0 591 / 591 Output Total 200 / 200 Balance 0 / 0 391 / 391 Weight 260 lb 256 lb Radiology Reports for the Last 24 Hours: Cardiac Cath 1. Severe single vessel coronary disease involving the proximal LAD 2. Successful stenting the proximal LAD severe disease reduced to 0% with 1 drug-eluting stent 3. Mild to moderate disease as described above in the circumflex artery ramus intermedius and right coronary artery 4. Normal ejection fraction 5. Mildly elevated LVEDP - Constitutional no acute distress - *Routine Respiratory Exam Present: CTA bilaterally - *Routine Cardiovascular Exam Present: RRR - *Routine Abdominal Exam Present: soft, normoactive bowel sounds. Absent: tenderness - *Routine Extremities Exam Absent: edema Assessment and Plan (1) New onset atrial fibrillation Current visit: Yes Status: Acute Category: Medical Code(s): I48.91 - Unspecified atrial fibrillation (2) Near syncope Current visit: Yes Status: Acute Category: Medical Code(s): R55 - Syncope and collapse (3) Chest pain Current visit: Yes Status: Acute Qualifiers: Chest pain type: other chest pain Qualified Code(s): R07.89 - Other chest pain; R07.8 - Other chest pain Category: Medical Code(s): R07.9 - Chest pain, unspecified (4) Hypertension Current visit: Yes Status: Chronic Category: Medical Code(s): I10 - Essential (primary) hypertension (5) Hyperlipidemia Current visit: Yes Status: Chronic Category: Medical Code(s): E78.5 - Hyperlipidemia, unspecified (6) Reflux pharyngitis Current visit: No Status: Chronic Category: Medical Code(s): J02.9 - Acute pharyngitis, unspecified (7) Uncontrolled diabetes mellitus Current visit: No Status: Chronic Qualifiers: Diabetes mellitus type: type 2 Diabetes mellitus complication status: with hyperglycemia Diabetes mellitus buttermilk drier operator insulin use: without buttermilk drier operator use Qualified Code(s): E11.65 - Type 2 diabetes mellitus with hyperglycemia Category: Medical Code(s): E11.65 - Type 2 diabetes mellitus with hyperglycemia (8) Coronary artery disease Current visit: Yes Status: Acute Category: Medical Code(s): I25.10 - Atherosclerotic heart disease of [place] coronary artery without angina pectoris (9) Status post insertion of drug-eluting stent into left anterior descending (LAD) artery Current visit: Yes Status: Acute Category: Medical Code(s): Z95.5 - Presence of coronary angioplasty impl
--- NOTE | 2017-12-03 09:10 | P.PN_ITS ---
Internal Medicine - PN: Subj *Date: 12/03/17 *Time: 09:05 Interval history: States he is feeling much better today. He had a heart cath yesterday and had a stent placed. He is currently in normal sinus rhythm and has not had any more chest pain or dizzy spells. He is anxious to go home. Exam Vital signs and Labs for Last 24 Hours: Temp Pulse Resp BP Pulse Ox 97.7 F 77 16 139/84 96 12/03/17 04:00 12/03/17 06:00 12/03/17 06:00 12/03/17 06:00 12/03/17 06:00 Laboratory Results - last 24 hr 12/02/17 11:10: Total Creatine Kinase 52, CK-MB (CK-2) 0.5, CK-MB (CK-2) Rel Index 1.0, Troponin I < 0.02 12/02/17 11:10: Sodium 138, Potassium 3.8, Chloride 101, Carbon Dioxide 27, Anion Gap 13.8, BUN 9, Creatinine 0.76, Estimated Creat Clear 194, Estimated GFR 109, Est GFR ( Amer) 131, Glucose 264 H, Calcium 8.7, Total Bilirubin 0.7, AST 14 L, ALT 33, Alkaline Phosphatase 97, Total Protein 7.3, Albumin 3.7, Globulin 3.6 H, Albumin/Globulin Ratio 1.0 L 12/02/17 12:32: Activated Clotting Time > 400 H* 12/02/17 19:54: POC Glucose 311 12/03/17 06:16: POC Glucose 197 12/03/17 07:05: Sodium 137, Potassium 4.0, Chloride 102, Carbon Dioxide 30, Anion Gap 9.0, BUN 12 D, Creatinine 0.88, Estimated Creat Clear 165, Estimated GFR 92, Est GFR ( Amer) 111, Glucose 237 H I & O for Last 24 hours: Intake & Output 11/30/17 12/01/17 12/02/17 12/03/17 11:59 11:59 11:59 11:59 Intake Total 0 / 0 591 / 591 Output Total 200 / 200 Balance 0 / 0 391 / 391 Weight 260 lb 256 lb Radiology Reports for the Last 24 Hours: Cardiac Cath 1. Severe single vessel coronary disease involving the proximal LAD 2. Successful stenting the proximal LAD severe disease reduced to 0% with 1 drug-eluting stent 3. Mild to moderate disease as described above in the circumflex artery ramus intermedius and right coronary artery 4. Normal ejection fraction 5. Mildly elevated LVEDP - Constitutional no acute distress - *Routine Respiratory Exam Present: CTA bilaterally - *Routine Cardiovascular Exam Present: RRR - *Routine Abdominal Exam Present: soft, normoactive bowel sounds. Absent: tenderness - *Routine Extremities Exam Absent: edema Assessment and Plan (1) New onset atrial fibrillation Current visit: Yes Status: Acute Category: Medical Code(s): I48.91 - Unspecified atrial fibrillation (2) Near syncope Current visit: Yes Status: Acute Category: Medical Code(s): R55 - Syncope and collapse (3) Chest pain Current visit: Yes Status: Acute Qualifiers: Chest pain type: other chest pain Qualified Code(s): R07.89 - Other chest pain; R07.8 - Other chest pain Category: Medical Code(s): R07.9 - Chest pain, unspecified (4) Hypertension Current visit: Yes Status: Chronic Category: Medical Code(s): I10 - Essential (primary) hypertension (5) Hyperlipidemia Current visit: Yes Status: Chronic Category: Medical Code(s): E78.5 - Hyperlipidemia, unspecified (6) Reflux pharyngitis Current visit: No Status: Chronic Category: Medical Code(s): J02.9 - Acute pharyngitis, unspecified (7) Uncontrolled diabetes mellitus Current visit: No Status: Chronic Qualifiers: Diabetes mellitus type: type 2 Diabetes mellitus complication status: with hyperglycemia Diabetes mellitus equipment operator intermodal yard insulin use: without equipment operator intermodal yard use Qualified Code(s): E11.65 -
--- NOTE | 2017-12-03 11:15 | HMH.ACPN2 ---
Internal Medicine - PN: Subj *Date: 12/03/17 *Time: 11:15 Exam Vital signs and Labs for Last 24 Hours: Temp Pulse Resp BP Pulse Ox 97.7 F 77 16 139/84 96 12/03/17 04:00 12/03/17 06:00 12/03/17 06:00 12/03/17 06:00 12/03/17 06:00 Laboratory Results - last 24 hr 12/02/17 11:10: Total Creatine Kinase 52, CK-MB (CK-2) 0.5, CK-MB (CK-2) Rel Index 1.0, Troponin I < 0.02 12/02/17 11:10: Sodium 138, Potassium 3.8, Chloride 101, Carbon Dioxide 27, Anion Gap 13.8, BUN 9, Creatinine 0.76, Estimated Creat Clear 194, Estimated GFR 109, Est GFR ( Amer) 131, Glucose 264 H, Calcium 8.7, Total Bilirubin 0.7, AST 14 L, ALT 33, Alkaline Phosphatase 97, Total Protein 7.3, Albumin 3.7, Globulin 3.6 H, Albumin/Globulin Ratio 1.0 L 12/02/17 12:32: Activated Clotting Time > 400 H* 12/02/17 19:54: POC Glucose 311 12/03/17 06:16: POC Glucose 197 12/03/17 07:05: Sodium 137, Potassium 4.0, Chloride 102, Carbon Dioxide 30, Anion Gap 9.0, BUN 12 D, Creatinine 0.88, Estimated Creat Clear 165, Estimated GFR 92, Est GFR ( Amer) 111, Glucose 237 H I & O for Last 24 hours: Intake & Output 11/30/17 12/01/17 12/02/17 12/03/17 11:59 11:59 11:59 11:59 Intake Total 0 / 0 591 / 591 Output Total 200 / 200 Balance 0 / 0 391 / 391 Weight 260 lb 256 lb Assessment and Plan (1) Hypothyroidism Current visit: Yes Status: Acute Category: Medical Code(s): E03.9 - Hypothyroidism, unspecified Synthroid 25mcg
--- NOTE | 2017-12-06 13:56 | HMH.DCSUM ---
General - General Admission date: 12/02/17 Discharge date: 12/03/17 HPI HPI: Mr. Pugh is a 52-year-old male with a history of hypertension, diabetes, hyperlipidemia, and asthma. For the past month he has been having transient episodes of chest pain and dizziness. He felt like he was having reflux, therefore on Tuesday he went to the clinic and was given a prescription for an antacid. He states yesterday he fed cows, ate dinner, and began having another dizzy spell with chest pain. He looked it up on the Internet and felt like he probably should come to the emergency room. He did feel his heart racing. Once he presented to the emergency room, he was evaluated and found to be in atrial fib. He was admitted with a cardiology consult. Of note, he has a strong family history of cardiac dysrhythmias. Objective Vital signs: Temp Pulse Resp BP Pulse Ox 97.7 F 67 18 125/74 97 12/03/17 04:00 12/03/17 12:30 12/03/17 12:30 12/03/17 12:30 12/03/17 12:30 Narrative: - Constitutional no acute distress - *Routine HEENT Exam Head: Present: normocephalic, atraumatic Eye: Present: EOMI, PERRL - *Routine Neck Exam Present: supple, full ROM. Absent: carotid bruit - *Routine Respiratory Exam Present: CTA bilaterally - *Routine Cardiovascular Exam Present: irregularly irregular - *Routine Abdominal Exam Present: soft, normoactive bowel sounds. Absent: tenderness - *Routine Extremities Exam Absent: edema - *Routine Skin Exam Present: intact - *Routine Neurological Exam Present: alert, oriented X3 Hospital Course Hospital Course: The patient had a CXR showing nothing acute. He had an echo showing a mildly enlarged left atrium, normal left ventricular size, mild qualitative concentric left ventricular hypertrophy, and a visually estimated ejection fraction 50% with mild anteroseptal wall hypokinesis. Cardiology saw the patient and he had converted to NSR. They performed a heart cath and stented his LAD. Cardiology started the patient on aspirin and Plavix daily. They would like his LDL to be less than 55. They would like him to undergo cardiac rehabilitation and avoid tobacco products. His TSH was elevated, therefore he was started on synthroid. He will f/u with cardiology and in the office of A. DS: Diagnosis - Discharge Diagnosis (1) New onset atrial fibrillation Status: Acute (2) Near syncope Status: Acute (3) Chest pain Status: Acute (4) Hypertension Status: Chronic (5) Hyperlipidemia Status: Chronic (6) Reflux pharyngitis Status: Chronic (7) Uncontrolled diabetes mellitus Status: Chronic (8) Coronary artery disease Status: Acute (9) Status post insertion of drug-eluting stent into left anterior descending (LAD) artery Status: Acute Meds Home Medications Medication Instructions Recorded Confirmed Type Lisinopril [Lisinopril 10mg Tab] 10 mg PO DAILY 11/30/17 12/02/17 History Omeprazole [Omeprazole 20mg 20 mg PO DAILY 12/01/17 12/02/17 History Capsule] Sitagliptin Phosphate [Januvia] 100 mg PO DAILY 12/02/17 12/02/17 History Allergies Allergy/AdvReac Type Severity Reaction Status Date / Time aspirin Allergy Severe Hives Verified 12/01/17 23:39 Penicillins Allergy Severe Anaphylaxis Verified 12/01/17 23:39 Discharge Plan - Patient Discharge Instructions ACTIVITY: Limited activity DIET: low fat, low cholesterol Patient Instructions: Cardiac Catheterization, DI for Cardiac Catheterization - Follow up Plan Follow up with: Pelon Sainz MD [Staff Physician] - Disposition: Home, Self-Shelter Medications: Home Medications Medication Instructions Recorded Confirmed Type Lisinopril [Lisinopril 10mg Tab] 10 mg PO DAILY 11/30/17 12/02/17 History Omeprazole [Omeprazole 20mg 20 mg PO DAILY 12/01/17 12/02/17 History Capsule] Sitagliptin Phosphate [Januvia] 100 mg PO DAILY 12/02/1712/02
--- NOTE | 2017-12-06 14:01 | P.DS_ITS ---
General - General Admission date: 12/02/17 Discharge date: 12/03/17 HPI HPI: Mr. Pugh is a 52-year-old male with a history of hypertension, diabetes, hyperlipidemia, and asthma. For the past month he has been having transient episodes of chest pain and dizziness. He felt like he was having reflux, therefore on Tuesday he went to the clinic and was given a prescription for an antacid. He states yesterday he fed cows, ate dinner, and began having another dizzy spell with chest pain. He looked it up on the Internet and felt like he probably should come to the emergency room. He did feel his heart racing. Once he presented to the emergency room, he was evaluated and found to be in atrial fib. He was admitted with a cardiology consult. Of note, he has a strong family history of cardiac dysrhythmias. Objective Vital signs: Temp Pulse Resp BP Pulse Ox 97.7 F 67 18 125/74 97 12/03/17 04:00 12/03/17 12:30 12/03/17 12:30 12/03/17 12:30 12/03/17 12:30 Narrative: - Constitutional no acute distress - *Routine HEENT Exam Head: Present: normocephalic, atraumatic Eye: Present: EOMI, PERRL - *Routine Neck Exam Present: supple, full ROM. Absent: carotid bruit - *Routine Respiratory Exam Present: CTA bilaterally - *Routine Cardiovascular Exam Present: irregularly irregular - *Routine Abdominal Exam Present: soft, normoactive bowel sounds. Absent: tenderness - *Routine Extremities Exam Absent: edema - *Routine Skin Exam Present: intact - *Routine Neurological Exam Present: alert, oriented X3 Hospital Course Hospital Course: The patient had a CXR showing nothing acute. He had an echo showing a mildly enlarged left atrium, normal left ventricular size, mild qualitative concentric left ventricular hypertrophy, and a visually estimated ejection fraction 50% with mild anteroseptal wall hypokinesis. Cardiology saw the patient and he had converted to NSR. They performed a heart cath and stented his LAD. Cardiology started the patient on aspirin and Plavix daily. They would like his LDL to be less than 55. They would like him to undergo cardiac rehabilitation and avoid tobacco products. His TSH was elevated, therefore he was started on synthroid. He will f/u with cardiology and in the office of A. DS: Diagnosis - Discharge Diagnosis (1) New onset atrial fibrillation Status: Acute (2) Near syncope Status: Acute (3) Chest pain Status: Acute (4) Hypertension Status: Chronic (5) Hyperlipidemia Status: Chronic (6) Reflux pharyngitis Status: Chronic (7) Uncontrolled diabetes mellitus Status: Chronic (8) Coronary artery disease Status: Acute (9) Status post insertion of drug-eluting stent into left anterior descending ( LAD) artery Status: Acute Meds Home Medications Medication Instructions Recorded Confirmed Type Lisinopril [Lisinopril 10mg Tab] 10 mg PO DAILY 11/30/17 12/02/17 History Omeprazole [Omeprazole 20mg 20 mg PO DAILY 12/01/17 12/02/17 History Capsule] Sitagliptin Phosphate [Januvia] 100 mg PO DAILY 12/02/17 12/02/17 History Allergies Allergy/AdvReac Type Severity Reaction Status Date / Time aspirin Allergy Severe Hives Verified 12/01/17 23:39 Penicillins Allergy Severe Anaphylaxis Verified 12/01/17 23:39 Discharge Plan
== END 2017-12-03 12:50 | disposition home or self-care (01) ==
LOC: ER 12-02 02:06 → 2ND 12-02 08:35 → ICU 12-02 13:58
PROVIDERS: Family Medicine; Internal Medicine; Admitting Provider Family Medicine; Emergency Provider Emergency Medicine; Visit Provider Family Medicine
DX: R07.9 Chest pain, unspecified (principal); I25.110 Atherosclerotic heart disease of native coronary artery with unstable angina pectoris; I48.91 Unspecified atrial fibrillation; Z72.0 Tobacco use; I10 Essential (primary) hypertension; E11.9 Type 2 diabetes mellitus without complications
CPT/HCPCS: 36415; 71046; 80048; 80053; 82150; 82550; 82553; 82962; 83036; 83690; 83880; 84443; 84484; 85025; 85347; 85378; 92928; 93005; 93041; 93306; 93458; 94761; 96374; 99152; 99153; 99284; C1725; C1760; C1769; C1876; C9600; G0378; J1644; Q9967

== ENCOUNTER 2017-12-20 14:58 | Outpatient (RCR) | payer OTHER, SELFPAY | END 2017-12-20 15:00 | disposition home or self-care (01) | LOC: PT 14:58 | PROVIDERS: PCP Family Medicine; Visit Provider Internal Medicine | DX: I25.10 Atherosclerotic heart disease of native coronary artery without angina pectoris (principal); I48.0 Paroxysmal atrial fibrillation; I10 Essential (primary) hypertension; E78.5 Hyperlipidemia, unspecified; E03.9 Hypothyroidism, unspecified; I20.8 Other forms of angina pectoris; R06.00 Dyspnea, unspecified; R00.0 Tachycardia, unspecified; R94.31 Abnormal electrocardiogram [ECG] [EKG] ==

== ENCOUNTER → 2019-07-20 14:36 | Outpatient (CLI) | payer OTHER, SELFPAY ==
--- NOTE | 2019-07-20 14:38 | CA_ITS ---
APPROVED REPORT EXAM: Comprehensive 2D, Doppler, and color-flow Echocardiogram Inspector Multifocal Lens: Nadia Wilson RT(R) Ht: 5 ft 8 in Wt: 268lbs BSA: 2.31 BP: 145/85 mmHg Indications: Shortness of Breath, Atrial Fibrillation, Peripheral Edema, CAD, Hyperlipidemia, Hypertension/HDD 2D Dimensions LVOT 2.20 cm (M/F) 1.5-2.5 M-Mode Dimensions RVDd 2.10 cm (0.9-2.6) LA Diam 4.20 cm (1.9-4.0) LVDd 5.50 cm (3.5-5.7) Ao Diam 2.90 cm (2.0-3.7) LVDs 4.40 cm (3.5-5.7) AV Cusp 1.90 cm (1.5-2.6) IVSd 1.00 cm (0.6-1.1) PWd 0.80 cm (0.6-1.1) EF (Teich) 40.30% FS 20.00% EDV (Teich) 147.00 mL ESV (Teich) 87.70 mL LV Diastology E/A Ratio 1.2 MED E' 7.12 (< 7 cm/sec) E'/MED E' Ratio 12.30 (>14) LAT E' 10.40 (<10 cm/sec) E/LAT E' Ratio 8.50 (>14) Mitral Valve MV E Max Luca. 87.90 (40-130 cm/s) MV A Velocity 74.00 (40-130 cm/s) E/A Ratio 1.20 Left Ventricle Left atrium is mildly enlarged, left ventricle is normal size, mild concentric left ventricular hypertrophy, visually estimated ejection fraction 55% with no regional wall motion abnormality. Grade 1 diastolic dysfunction seen without tissue Doppler evidence of raise left atrial pressure. Right Ventricle Right atrium and right ventricular normal size and contractility. Aortic Valve Aortic valve is minimally thickened and fibrosed, there is no aortic stenosis or aortic insufficiency. Mitral Valve Mitral valve is grossly normal, there is no mitral stenosis, there is mild mitral regurgitation. Tricuspid Valve Tricuspid valve is grossly normal, there is mild tricuspid regurgitation. Tricuspid regurgitation jet velocity is inadequate for calculation of the right ventricular systolic pressure. Pulmonic Valve Pulmonic valve is poorly visualized. Great Vessels Aortic root is normal size. Pericardium No significant pericardial effusion noted. Conclusion 1. Mildly enlarged left atrium, normal left ventricular size, mild concentric left ventricular hypertrophy, visually estimated ejection fraction of 55% with no regional wall motion abnormality, grade 1 diastolic dysfunction seen without tissue Doppler evidence of raise left atrial pressure. 2. Mild mitral and tricuspid regurgitation 3. No significant pericardial effusion noted. Electronically signed by : Osmany Gambino, 07/20/2019 16:10:17
== END ==
PROVIDERS: PCP Family Medicine; Visit Provider Urology
DX: R06.00 Dyspnea, unspecified (principal); R60.0 Localized edema; I25.10 Atherosclerotic heart disease of native coronary artery without angina pectoris; I48.91 Unspecified atrial fibrillation; E78.5 Hyperlipidemia, unspecified; I10 Essential (primary) hypertension; Z95.5 Presence of coronary angioplasty implant and graft
CPT/HCPCS: 93306

== ENCOUNTER → 2020-01-09 15:43 | Outpatient (CLI) | payer OTHER, SELFPAY ==
[2020-01-09 17:34] LABS: Chloride 103 mmol/L (98-107); Sodium 139 mmol/L (136-145)
[2020-01-09 17:37] LABS: Blood Urea Nitrogen 12 mg/dl (9-20); Calcium 9.2 mg/dl (8.4-10.2); Carbon Dioxide 27 mmol/L (22.0-30.0); Estimated Glomerular Filt Rate 89 ml/min (>60); GFR (African American) 107 ML/MIN (>60); Glucose 116 mg/dl (74-100)
== END ==
PROVIDERS: Visit Provider Urology
DX: E78.5 Hyperlipidemia, unspecified (principal); I10 Essential (primary) hypertension; I25.10 Atherosclerotic heart disease of native coronary artery without angina pectoris; I48.91 Unspecified atrial fibrillation; R06.00 Dyspnea, unspecified; R60.0 Localized edema; Z95.5 Presence of coronary angioplasty implant and graft
CPT/HCPCS: 36415; 80048

== ENCOUNTER 2020-11-12 11:57 | Emergency (ER) | payer OTHER, SELFPAY ==
[2020-11-12 12:05] VITALS: BP 150/85; PULSE 95; RESP 20; TEMP 36.8; O2SAT 96; BMI 38.0
--- NOTE | 2020-11-12 12:21 | HMH.EDUTC ---
[facility] [place] Impression: Muscle spasm Disposition: Home, Self-Care Condition on Discharge: Good Instructions: Muscle Strain, DI for Muscle Spasm Additional Instructions: *Ibuprofen vishnu 6 hours with meal as needed for pain/inflammation *Not additional anti-inflammatory like motrin, aleve, advil with the above amount of ibuprofen. You can still take Tylenol every 4 hours as needed if you need something else for pain *Ice 20 minutes every 2 hours for the first 48 hours after the initial injury followed by moist heat every 20 minutes 3-4 times a day to affected area *Muscle relaxer as prescribed as needed for muscle spasms but remember, it WILL cause drowsiness You cannot take it and drive, operate machinery or care for small children. *Keep this area active, no movement leads to more stiffness, However take it easy and avoid heavy lifting pushing or pulling *Follow up with you family doctor if no improvement for further treatment Prescriptions: methocarbamoL [Methocarbamol 750mg Tab] 750 mg PO BID PRN #8 tab PRN Reason: Muscle Spasm Transmission Status: Received by [facility] #[id number] Referrals: Pelon Sainz MD [Primary Care Provider] - As needed Time of Disposition: 12:43 Medical Decision Making - Enoc Inquiry Pt receiving controlled substance: No Enoc was queried for this patient: No Vital Signs: 11/12/20 12:05 11/12/20 12:53 Temperature 98.3 F 98.3 F Temperature Source Oral Pulse Rate 95 H Pulse Rate [Right Brachial] 95 H Respiratory Rate 20 20 Blood Pressure 150/85 H Blood Pressure [Right Arm] 150/85 H Blood Pressure Mean [Right Arm] 106 Blood Pressure Source [Right Arm] Automatic Cuff Blood Pressure Position [Right Arm] Sitting 02 Sat by Pulse Oximetry 96 Oxygen Delivery Method Room Air - Lab Data Lab Results 11/12/20 12:29: Urine Color Yellow, Urine Appearance Clear, Urine pH 5.0, Ur Specific [place] 1.015, Urine Protein Negative, Urine Glucose (UA) >1000, Urine Ketones Negative, Urine Blood Trace, Urine Nitrate Negative, Urine Bilirubin Negative, Urine Urobilinogen 0.2, Ur Leukocyte Esterase Negative [facility] [place] - General Stated complaint: shoulder pain no ao Time Seen by Provider: 11/12/20 12:21 Mode of Arrival: Ambulatory Source of Information: Patient Limitations: No Limitations Description of Symptoms (Recalled from Triage Doc. by RN): PATIENT C/O LEFT SHOULDER PAIN SINCE LAST NIGHT. 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 and thinks he pulled a muscle in his left shoulder State that ever since he has been having spasm like pain in his left shoulder blade area that is worse with movement States also wants to have urine checked thinks he may have a UTI States that he has been having urinary frequency and urgency for about a week wants checked for UTI - Related Data Home Medications Medication Instructions Recorded Confirmed lisinopriL [Lisinopril 10mg Tab] 10 mg PO DAILY 11/30/17 07/31/20 Sitagliptin Phosphate [Januvia 100 mg PO DAILY 12/02/17 07/31/20 100mg tablet] clopidogrel 75 mg tablet 75 mg PO QDAY 12/08/17 07/31/20 empagliflozin 12.5 mg-metformin ER 1 tab PO QDAY 12/08/17 07/31/20 1,000 mg tablet,extended rel 24 hr duloxetine 30 mg capsule,delayed 30 mg PO DAILY 07/06/18 07/31/20 release Atorvastatin Calcium [Atorvastatin 40 mg PO HS 10/21/18 07/31/20 40mg Tab] Rivaroxaban [Xarelto 20mg Tablet*] 20 mg PO DAILY 10/21/18 07/31/20 gabapentin 400 mg capsule 400 mg PO BID cap 01/02/20 07/31/20 ropinirole 0.5 mg tablet 0.5 mg PO QHS
[2020-11-12 12:53] VITALS: BP 150/85; PULSE 95; RESP 20; TEMP 36.8; O2SAT 96
[2020-11-12 13:03] LABS: Apearance,Urine Clear (Clear); Bilirubin,Urine Negative (Negative); Blood, Urine Trace (Negative); Color,Urine Yellow (Yellow); Glucose,Urine (UA) >1000 (Negative); Ketones,Urine Negative (Negative); Protein,Urine Negative (Negative); Specific Gravity, Urine 1.015 (1.005-1.030); UTC Leukocyte Esterase,Urine Negative (Negative); UTC Nitrate,Urine Negative (Negative); Urobilinogen,Urine 0.2 EU/dl (0.2)
== END 2020-11-12 12:58 | disposition home or self-care (01) ==
PROVIDERS: Emergency Provider Nurse Practitioner; PCP Family Medicine
DX: M62.838 Other muscle spasm (principal); M25.512 Pain in left shoulder; E03.9 Hypothyroidism, unspecified; I10 Essential (primary) hypertension; E11.9 Type 2 diabetes mellitus without complications; K21.9 Gastro-esophageal reflux disease without esophagitis; E78.5 Hyperlipidemia, unspecified; I48.91 Unspecified atrial fibrillation; Z79.899 Other long term (current) drug therapy; F17.290 Nicotine dependence, other tobacco product, uncomplicated; Z88.0 Allergy status to penicillin
CPT/HCPCS: 81003; 99201

== ENCOUNTER 2021-02-18 09:02 | Emergency (ER) | payer OTHER, SELFPAY ==
[2021-02-18 09:10] VITALS: BP 117/84; PULSE 94; RESP 19; TEMP 37; O2SAT 98; BMI 39.5
--- NOTE | 2021-02-18 09:33 | XR_ITS ---
PROCEDURE: XR TIBIA FIBULA RT 2V CLINICAL INDICATION: pain Right lower leg pain COMPARISON: No exams were available for comparison FINDINGS: There is an old fracture of the distal tibia and fibula with cortical thickening. Minimal lateral angulation of the distal aspect of the tibia. Lucencies are present in the mid suspected from prior ORIF. No acute fracture or dislocation. No lytic changes. IMPRESSION: Old distal tib fib fracture with suspected prior ORIF changes. No acute finding Dictated by: Sergei Stubbs MD 02/18/2021 12:18 Sergei Stubbs MD in [place] 02/18/2021 12:20
--- NOTE | 2021-02-18 09:33 | HMH.EDUTC ---
[facility] [place] Clinical Impression: Strain of calf muscle Qualifiers: Encounter type: initial encounter Laterality: right Qualified Code(s): S86.811A - Strain of other muscle(s) and tendon(s) at lower leg level, right leg, initial encounter Disposition: Home, Self-Care Condition on Discharge: Good Instructions: Calf Muscle Strain, DI for Calf Muscle Strain Additional Instructions: *weight bearing as tolerated *RICE, Rest the extremity, Ice 15-20 minutes 3-4 times daily, Compress- wear the christian wrap as discussed as much as possible to help reduce swelling and pain, Elevate the extremity when at rest *Christian wrap is for support and help control swelling, use it except in the shower. Be sure that is not to tight but not to loose either *Elevate when resting * Tylenol as directed on package if you are able to take it Immediately follow up with your family doctor for new or worsening of symptoms, or no noticeable improvement over the next 3-5 days Referrals: Pelon Sainz MD [Primary Care Provider] - As needed Forms: Work/School Release Time of Disposition: 10:21 Medical Decision Making - Enoc Inquiry Pt receiving controlled substance: No Enoc was queried for this patient: No Vital Signs: 02/18/21 09:10 Temperature 98.6 F Temperature Source Oral Pulse Rate [Right Brachial] 94 H Respiratory Rate 19 Blood Pressure [Right Arm] 117/84 Blood Pressure Mean [Right Arm] 95 Blood Pressure Source [Right Arm] Automatic Cuff Blood Pressure Position [Right Arm] Sitting 02 Sat by Pulse Oximetry 98 Oxygen Delivery Method Room Air Orders (Tests/Meds): ORDERS Category Date Time Status XR tibia fibula RT 2V Stat Exams 02/18/21 09:33 Taken - Radiology Data #1 Image(s): Tib/Fib Image Reviewed: Yes I reviewed the patient's radiology image Preliminary Findings: No Fracture Seen Medical Decision Narrative: awaiting patient to go to [facility] HPI - General Stated complaint: possible pulled muscle in Rt leg Time Seen by Provider: 02/18/21 09:33 Mode of Arrival: Ambulatory Source of Information: Patient Limitations: No Limitations Description of Symptoms (Recalled from Triage Doc. by RN): PATIENT C/O RIGHT LEG PAIN SINCE YESTERDAY HEENT Symptoms (Recalled from RN notes): No Resp Symptoms (Recalled from RN notes): No Skin Symptoms (Recalled from RN notes): No MS Symptoms (Recalled from RN notes): Yes Functional Status (Recalled from RN notes): WNL - History of Present Illness Provider Complaint: Patient states that he was pulling on a hay rake and felt like he pulled something in the side of his right lower leg State that he thinks he pulled a muscle State that last night it felt sore and was a little swollen States that today it was still hurting at times when he would walk and still felt a little swollen so he came in to get it checked - Related Data Home Medications Medication Instructions Recorded Confirmed lisinopriL [Lisinopril 10mg Tab] 10 mg PO DAILY 11/30/17 07/31/20 Sitagliptin Phosphate [Januvia 100 mg PO DAILY 12/02/17 07/31/20 100mg tablet] clopidogrel 75 mg tablet 75 mg PO QDAY 12/08/17 07/31/20 empagliflozin 12.5 mg-metformin ER 1 tab PO QDAY 12/08/17 07/31/20 1,000 mg tablet,extended rel 24 hr duloxetine 30 mg capsule,delayed 30 mg PO DAILY 07/06/18 07/31/20 release Atorvastatin Calcium [Atorvastatin 40 mg PO HS 10/21/18 07/31/20 40mg Tab] Rivaroxaban [Xarelto 20mg Tablet*] 20 mg PO DAILY 10/21/18 07/31/20 gabapentin 400 mg capsule 400 mg PO BID cap 01/02/20 07/31/20 ropinirole 0.5 mg tablet 0.5 mg PO QHS 01/02/20 07/31/20 tamsulosin 0.4 mg capsule 0.4 mg PO DAILY cap 01/10/20 07/31/20 glimepiride 4 mg tablet 4 mg PO DAILY tab 07/31/20 07/31/20 Previous Rx's Medication Instructions Recorded ranolazine 1,000 mg 500 mg PO BID #60 tab 08/27/19 tablet,extended release,12 hr furosemide 20 mg tablet 20 mg PO DAILY PRN #30 tab 10/18/19 bisoprolol fumarate 5 mg tablet
[2021-02-18 10:28] VITALS: BP 117/84; PULSE 94; RESP 19; TEMP 37; O2SAT 98
== END 2021-02-18 10:30 | disposition home or self-care (01) ==
PROVIDERS: Emergency Provider Nurse Practitioner; PCP Family Medicine
DX: S86.811A Strain of other muscle(s) and tendon(s) at lower leg level, right leg, initial encounter (principal); X50.0XXA Overexertion from strenuous movement or load, initial encounter; Y92.73 Farm field as the place of occurrence of the external cause; I10 Essential (primary) hypertension; E78.5 Hyperlipidemia, unspecified; E03.9 Hypothyroidism, unspecified; I48.91 Unspecified atrial fibrillation; E11.9 Type 2 diabetes mellitus without complications; K21.9 Gastro-esophageal reflux disease without esophagitis; F17.290 Nicotine dependence, other tobacco product, uncomplicated; Z88.0 Allergy status to penicillin; Z79.899 Other long term (current) drug therapy
CPT/HCPCS: 73590; 99202; G0463

== ENCOUNTER → 2021-03-11 11:23 | Outpatient (CLI) | payer OTHER, SELFPAY ==
--- NOTE | 2021-03-11 11:24 | NM_ITS ---
APPROVED REPORT Exam: Nuclear Stress Test Indication: CAD, OBESITY, HTN, D.M., HYPERLIPIDEMIA, TOB USE, FM HX, C.P., SOB, SYNCOPE, FATIGUE A-FIB Patient Location: Outpatient Stress Tech: Mildred Barth [place] Tech:Anay Burr, ARRT RT (R)(N)(M) Ht: 5 ft 8 in Wt: 260 lbs HR: 65 bpm BP: 119/67 mmHg BSA: 2.28 m2 BMI: 39.5 History: CAD, OBESITY, HTN, D.M., HYPERLIPIDEMIA, TOB USE, FM HX, C.P., SOB, SYNCOPE, FATIGUE A-FIB Procedure: Patient received a 0.4 mg of intravenous Lexiscan, resting heart rate 65 bpm, resting blood pressure 119/67 mmHg, with Lexiscan maximum heart rate achived was 94 bpm which is Less than 85 % of the maximum predicted heart rate and blood pressure was 131/68 mmHg. With Lexiscan, patient denied any complaint of chest pain. SOA, MALAISE Electrocardiogram Sinus rhythm with frequent premature atrial complexes. With Lexiscan there is less than 1.[address] segment depression noted from the baseline EKG. The EKG portion of the Lexiscan is nondiagnostic. Cardiac Stress and Resting SPECT Images: Cardiac Stress and Resting SPECT images were obtained using technetium 99m Myoview 32.4 mCi stress and 10.46 mCi at rest. Gated SPECT for analysis of segmental wall motion and calculation of the ejection fraction also done. Prone images were also obtained. Cardiac stress and resting SPECT images show uniform myocardial activity without segmental perfusion abnormality, computer derived ejection fraction is 37%, left ventricle is mildly globally hypokinetic, however during the study frequent ectopic beats were present which may underestimate the ejection fraction by gated SPECT. Conclusion: 1. The EKG portion of the Lexiscan is nondiagnostic 2. No scintigraphic evidence of reversible ischemia seen, computer derived ejection fraction is 37% however during the study frequent ectopic beats were present which may underestimate the ejection fraction by gated SPECT 3. Normal perfusion however low ejection fraction as described above renders the study is abnormal. Clinical correlation is recommended, and echocardiogram will be better modality to evaluate left ventricular systolic function. Electronically signed by : Osmany Gambino, 03/12/2021 09:19:44
--- NOTE | 2021-03-11 13:52 | CA_ITS ---
APPROVED REPORT Exam: Pharmacologic Technologist: Mildred Barth, Ht: 5 ft 8 in Wt: 275 lbs BSA: 2.34 m2 HR: 65 bpm BP: 119/67 mmHg Medical History Medications: Protonix,,,,, Plavix,,,,, BisOPROLOL,,,,, AtorvaASTATIN,,,,, RIvaROXABAN,,,,, Synjardy,,,,, TAnsulosin HCL,,,,, Ropinerole,,,,, GlimepERIDE,,,,, Stress Test Details Test: LEXISCAN HR Resting HR: 57 bpm Max Heart Rate (APMHR): 167.673062 bpm Max HR Achieved: 97 bpm Target HR (85% APMHR): 141.487901 bpm % of APMHR: 58.08 Recovery HR: 73 bpm BP Resting BP: 119/67 mmHg Max BP: 133/73 mmHg Recovery BP: 131.0/64.0 mmHg ECG Resting ECG: NSR, PAC's, T wave abn in leads III and aVF Clinical Exercise duration: 04:05 min Highest Stage Achieved: Stress ECG Conclusion Symptoms: SOA, malaise, mild stomach discomfort. No CP. Arrhythmias/Ectopy: Frequent PAC's. ST-T Changes: No significant changes. Conclusion: Unremarkable Lexiscan stress. Myoview images reported separately. Test Summary REST . . . . . . . Resting REST 03:50 . . 57 . 119/ 67 . . Stage 1 . . . . . . . Cardiolite injected Stage 1 01:00 . . 80 . . . . Stage 2 01:00 . . 85 . . . . Stage 3 01:00 . . 85 . 131/ 68 . . Stage 4 01:00 . . 79 . 133/ 73 . . Stage 4 01:05 . . 79 . 133/ 73 . Stop exercise at 04:05 RECOVERY 01:00 . . 79 . 132/ 71 . . RECOVERY 02:00 . . 74 . 121/ 68 . . RECOVERY 03:00 . . 70 . 121/ 68 . . RECOVERY 03:54 . . 74 . 131/ 64 . . Electronically signed by : Osmany Gambino, 03/12/2021 09:12:30
== END ==
PROVIDERS: PCP Family Medicine; Visit Provider Internal Medicine Cardiovascular Disease
DX: R07.9 Chest pain, unspecified (principal); R06.00 Dyspnea, unspecified; I25.10 Atherosclerotic heart disease of native coronary artery without angina pectoris; I48.91 Unspecified atrial fibrillation; I10 Essential (primary) hypertension; E11.9 Type 2 diabetes mellitus without complications; E78.5 Hyperlipidemia, unspecified; J45.909 Unspecified asthma, uncomplicated; Z79.84 Long term (current) use of oral hypoglycemic drugs
CPT/HCPCS: 78452; 93017; A9502; J2785

== ENCOUNTER → 2021-03-16 10:34 | Outpatient (CLI) | payer OTHER, SELFPAY ==
--- NOTE | 2021-03-16 10:38 | CA_ITS ---
APPROVED REPORT EXAM: Comprehensive 2D, Doppler, and color-flow Echocardiogram Degreasing Solution Mixer: Nessa Lloyd RVT Ht: 5 ft 8 in Wt: 275lbs BSA: 2.34 BP: 137/22 mmHg Indications: ABN STRESS-LOW EF 37%,CP,WESLEY,SMOKER,DM,HTN,HLD,A-FIB,GERD ASTHMA,ABN EKG 2D Dimensions LVOT 2.04 cm (M/F) 1.5-2.5 LA Volume 35.90 mL LA Volume Index 15.34 mL/m2 (M/F) 16-34 M-Mode Dimensions RVDd 2.46 cm (0.9-2.6) LA Diam 4.31 cm (1.9-4.0) LVDd 3.60 cm (3.5-5.7) Ao Diam 3.09 cm (2.0-3.7) LVDs 2.46 cm (3.5-5.7) IVSd 0.99 cm (0.6-1.1) PWd 0.80 cm (0.6-1.1) EF (Teich) 60.70% FS 31.70% EDV (Teich) 54.40 mL TAPSE 2.42 (<1.7) ESV (Teich) 21.40 mL LV Diastology E Decel Time 180.00 (160-240 msec) E/A Ratio 1.5 MED E' 6.70 (< 7 cm/sec) E'/MED E' Ratio 11.27 (>14) LAT E' 8.90 (<10 cm/sec) E/LAT E' Ratio 8.48 (>14) Aortic Valve AO Peak GR. 7.80 mmHg Mitral Valve MV E Max Luca. 76.00 (40-130 cm/s) MV A Velocity 51.00 (40-130 cm/s) E/A Ratio 1.47 MV Decel. Time 180.00 (160-240 ms) MV PHT 53.00 ms Pulmonary Valve PV Peak Velocity 93.00 (50-150 cm/s) Left Ventricle Left atrium is mildly enlarged, left ventricle is normal size, there is no concentric left ventricular hypertrophy, visually estimated ejection fraction 50% with no regional wall motion abnormality, endocardial surfaces are poorly visualized, diastolic parameters are inconclusive. Right Ventricle Right atrium and right ventricle are normal size and contractility. Aortic Valve Aortic valve is minimally thickened and fibrosed, there is no aortic stenosis or aortic insufficiency. Mitral Valve Mitral valve is grossly normal, there is trace mitral regurgitation. Tricuspid Valve Tricuspid grossly normal, there is trace tricuspid regurgitation, tricuspid regurgitation jet velocity is inadequate for calculation of the right ventricular systolic pressure. Pulmonic Valve Pulmonic valve is poorly visualized. Great Vessels Aortic root is normal size. Pericardium No significant pericardial effusion noted. Conclusion 1. Mildly enlarged left atrium, normal left ventricular size, visually estimated ejection fraction of 50% with no regional wall motion abnormality, diastolic parameters are inconclusive. 2. Trace mitral and tricuspid regurgitation. 3. No significant pericardial effusion noted. Electronically signed by : Osmany Gambino, 03/16/2021 13:58:56
== END ==
PROVIDERS: PCP Family Medicine; Visit Provider Physician Assistant
DX: R94.39 Abnormal result of other cardiovascular function study (principal)
CPT/HCPCS: 93306

== ENCOUNTER 2021-03-18 05:02 | Observation (INO) | payer OTHER, SELFPAY ==
[2021-03-18] VITALS (29 sets, daily range): BP systolic 100–147; BP diastolic 52–84; PULSE 68–85; RESP 14–20; TEMP 36.6–36.8; O2SAT 91–98; BMI 39.5; BMI 41.0; BMI 40.7
--- NOTE | 2021-03-18 | IR_ITS ---
APPROVED REPORT Patient Location: Inpatient PROCEDURES Left heart catheterization Left ventriculogram Selective coronary angiogram INDICATION Known coronary disease, Admission for unstable angina Informed consent was obtained prior to the procedure. COMPLICATIONS None Estimated Blood Loss: Less than 10 mls TECHNIQUE One percent lidocaine used to anesthetize the right anterior aspect of the wrist. The right radial artery was accessed via the Seldinger technique. A 6 [place] sheath was placed in the right radial artery. 2.5 mg of verapamil, 800 mcg of nitroglycerin, 1mg Lidocaine and 5000 U Heparin were given through the arterial sheath. The Poppa catheter was also used to perform left heart catheterization, left ventriculogram and selective coronary angiogram. At the end of the procedure the sheath was removed good hemostasis was achieved using Traclet band, patient was transferred to the postop holding area in stable condition. ANGIOGRAPHIC RESULTS The left main artery Normal The left anterior descending artery Has ostial proximal 10% stenoses followed by a stent which originates in the proximal segment and ends in the proximal segment which has mild 20% concentric in-stent restenosis with excellent proximal distal transitioning of the stent. The remaining LAD has mild 10% mid vessel luminal irregularities The circumflex artery Gives rise to a large ramus intermedius which has mild 10% proximal luminal irregularities well the circumflex artery itself has mild 10% luminal irregularities The right coronary artery Is a dominant vessel and has proximal and mid vessel diffuse 20 to 30% stenoses The FORD ventriculogram reveals Preserved 55% The left ventricular end-diastolic pressure Elevated at 25 to 30 mmHg IMPRESSION Patent coronary arteries as described above Preserved ejection fraction Elevated LVEDP which is the likely etiology for patient's angina PLAN 1. Treatment of diastolic dysfunction which is producing patient's angina 2. Continue risk factor modification Electronically signed by : Dinh Garcia, 03/18/2021 11:23:52
--- NOTE | 2021-03-18 04:55 | ECG_ITS ---
APPROVED REPORT Exam: Resting ECG HR:75 bpm ECG Measurements Heart Rate 75 AXES PA 170 P 52 QRSd 102 QRS 3 QT 370 T 26 QTc 413 Conclusion Normal sinus rhythm Normal ECG Electronically signed by : Naveen Bhatia, 03/18/2021 16:57:00
--- NOTE | 2021-03-18 05:03 | XR_ITS ---
PROCEDURE INFORMATION: Exam: XR Chest Exam date and time: 03/18/2021 5:03 AM Age: 55 years old Clinical indication: Angina pectoris; Patient HX: Chest painx2 days; Additional info: Cp TECHNIQUE: Imaging protocol: XR of the chest. Views: 2 views. COMPARISON: CR [id number] XR ribs RT min 3V w CXR1V 02/07/2019 2:52 PM FINDINGS: Lungs: Unremarkable. No consolidation. Pleural spaces: Unremarkable. No pleural effusion. No pneumothorax. Heart/Mediastinum: Unremarkable. No cardiomegaly. Bones/joints: Unremarkable. IMPRESSION: No acute findings.
--- NOTE | 2021-03-18 05:19 | HMH.EDCP ---
ED Disposition Clinical Impression: Unstable angina pectoris, Type 2 diabetes, uncontrolled, with neuropathy, Status post insertion of drug-eluting stent into left anterior descending (LAD) artery, Obesity (BMI 30-39.9) Hypothyroidism Qualifiers: Hypothyroidism type: acquired Qualified Code(s): E03.9 - Hypothyroidism, unspecified Disposition: Admitted as Observation Condition on Discharge: Serious Referrals: Pelon Sainz MD [Primary Care Provider] - - Critical Care Critical Care Time: No Attestation: On 03/18/21, the high probability of a clinically significant, sudden or life threatening deterioration of the following system(s) required my full and direct attention, intervention and personal management. The time I documented below is in addition to time spent performing reported procedures but includes the following listed in this critical care notation. Medical Decision Making - Medical Records Medical records reviewed: Yes: I reviewed the patient's medical records. - Enoc Inquiry Pt receiving controlled substance: No Vital Signs: 03/18/21 05:03 03/18/21 05:30 03/18/21 06:00 Temperature 97.8 F Temperature Source Oral Pulse Rate 78 74 Pulse Rate [Right] 79 Respiratory Rate 14 18 Blood Pressure 100/54 L 107/55 L Blood Pressure [Right Arm] 147/74 H Blood Pressure Mean [Right Arm] 98 Blood Pressure Source Automatic Cuff Automatic Cuff Blood Pressure Source [Right Arm] Automatic Cuff Blood Pressure Position Supine Supine Blood Pressure Position [Right Arm] Supine 02 Sat by Pulse Oximetry 96 94 L 93 L Oxygen Delivery Method Room Air Room Air Room Air - Lab Data Lab results reviewed: Yes: I reviewed the patient's lab results. Lab Results 03/18/21 05:00: WBC 11.2 H, RBC 5.48, Hgb 16.0, Hct 49.6, MCV 90.6, MCH 29.1, MCHC 32.2, RDW 13.9, Plt Count 187, MPV 8.9, Neut % (Auto) 75.4, Lymph % (Auto) 15.0, [place] % (Auto) 5.4, Eos % (Auto) 3.4, Baso % (Auto) 0.8, Neut # (Auto) 8.5 H, Lymph # (Auto) 1.7, [place] # (Auto) 0.6, Eos # (Auto) 0.4, Baso # (Auto) 0.1 03/18/21 05:00: Sodium 140, Potassium 4.0, Chloride 106, Carbon Dioxide 29, Anion Gap 9.0, BUN 17, Creatinine 0.80, Estimated Creat Clear 178, Estimated GFR 101, Est GFR ( Amer) 122, Glucose 172 H, Calcium 9.0, Total Bilirubin 0.6, Direct Bilirubin 0.2, Conjugated Bilirubin 0.0, Indirect Bilirubin 0.4, Unconjugated Bilirubin 0.4, AST 21, ALT 25, Alkaline Phosphatase 81, Troponin I < 0.01, C-Reactive Protein 6.2 H, Total Protein 6.9, Albumin 4.4 03/18/21 05:00: ESR 2 03/18/21 05:00: Procalcitonin 0.066 Result diagrams: 03/18/21 05:00 03/18/21 05:00 Orders (Tests/Meds): ED MEDICATIONS Generic Name Dose Route Start Last Admin Trade Name Freq PRN Reason Stop Dose Admin Nitroglycerin 0.4 mg 03/18/21 05:04 03/18/21 05:06 Nitroglycerin 0.4mg Sl Tablet SL 04/17/21 05:03 0.4 mg Q5MINP PRN Administration Chest Pain Discontinued Medications Generic Name Dose Route Start Last Admin Trade Name Freq PRN Reason Stop Dose Admin Nitroglycerin 1 gm 03/18/21 05:20 03/18/21 05:22 Nitroglycerin 1 Gm Ointment TD 03/18/21 05:21 1 gm ONCE ONE Administration ORDERS Category Date Time Status Covid-19 Nasal PCR ([facility]) Routine Lab 03/18/21 05:28 Received Troponin I Q3H Lab 03/18/21 08:15 Ordered Troponin I Q3H Lab 03/18/21 11:15 Ordered - Radiology Data #1 Image(s): Chest Image Reviewed: Yes I reviewed the patient's radiology image Preliminary Findings: Normal/NAD - ECG Data Tracing #1 Normal Sinus Rhythm: Yes Ischemic changes: non-specific ST-T wave changes - Physician Consults Physician Consulted: janette Reason -: Admission Additional Consult: irene Reason -: Pt condition Medical Decision Narrative: unstable angina with sig risk factors and will be admitted for card eval Chest Pain HPI - General Chief Complaint: Chest Pain Stated Complaint: cp Time Seen by Prov
[2021-03-18 05:23] LABS: Basophils # 0.1 K/mm3 (0-0.2); Basophils % 0.8 % (0.1-2.0); Eosinophils # 0.4 K/mm3 (0.0-0.4); Eosinophils % 3.4 % (0.1-12.0); Hematocrit 49.6 % (42.0-52.0); Lymphocytes # 1.7 K/mm3 (0.7-4.5); Mean Corpuscular HGB Conc 32.2 g/dL (31.8-35.4); Mean Corpuscular Hemoglobin 29.1 pg (27.0-31.2); Mean Corpuscular Volume 90.6 fl (80-94); Mean Platelet Volume 8.9 fl (7.4-10.4); Monocytes # 0.6 K/mm3 (0.1-1.0); Monocytes % 5.4 % (1.7-9.3); Neutrophils # 8.5 K/mm3 (1.8-7.8); Neutrophils % 75.4 % (37.0-80.0); Platelet Count 187 K/mm3 (142-424); Red Blood Count 5.48 M/mm3 (4.60-6.20); Red Cell Distribution Width 13.9 % (11.5-17.5); White Blood Count 11.2 K/mm3 (4.8-10.8)
[2021-03-18 05:26] LABS: Alanine Aminotransferase 25 U/L (12-78); Albumin Level 4.4 g/dl (3.5-5.0); Alkaline Phosphatase 81 U/L (38-126); Aspartate Amino Transferase 21 U/L (17-59); Bilirubin,Direct 0.2 mg/dl (0.0-0.4); Bilirubin,Indirect 0.4 mg/dL (0.0-0.9); Bilirubin,Total 0.6 mg/dl (0.2-1.3); Bilirubin,Unconjugated 0.4 mg/dL (0.0-1.1); Blood Urea Nitrogen 17 mg/dl (9-20); Carbon Dioxide 29 mmol/L (22.0-30.0); Chloride 106 mmol/L (98-107); Creatinine Clearance Estimated 178 mL/min (50-200); Estimated Glomerular Filt Rate 101 ml/min (>60); GFR (African American) 122 ML/MIN (>60); Glucose 172 mg/dl (74-100); Sodium 140 mmol/L (136-145); Total Protein,Serum 6.9 g/dl (6.3-8.2)
[2021-03-18 05:32] LABS: C-Reactive Protein 6.2 mg/L (0-4)
[2021-03-18 05:46] LABS: Procalcitonin 0.066 ng/mL (0.0-2.0)
[2021-03-18 05:58] LABS: Troponin I < 0.01 ng/ml (0.00-0.034)
[2021-03-18 06:00] LABS: Erythrocyte Sedimentation Rate 2 mm/hr (0-20)
--- NOTE | 2021-03-18 06:25 | PC.NURSE ---
Dr Baker spoke with Dr Garcia with cardiac concerns
--- NOTE | 2021-03-18 06:30 | PC.NURSE ---
Dr Baker spoke with Dr Justine bowen admission
--- NOTE | 2021-03-18 07:26 | PC.NURSE ---
called for result of covid tesst, lab advised 62 more min.
--- NOTE | 2021-03-18 08:18 | HMH.HP ---
*Admission Date: 03/18/21 <Jazmine Wallis - 03/18/21 08:22> *Chief complaint: Chest pain <Jazmine Wallis - 03/18/21 08:22> *History of present illness: Mr. Pugh is an 25-year-old male with a history of coronary artery disease with previous stent placement, atrial fibrillation, hypertension, type 2 diabetes mellitus, hyperlipidemia, esophageal reflux, and tobacco use disorder who presented to [facility] emergency room for evaluation after persistant chest discomfort. He describes having chest pain for the last 2 to 3 weeks. He has seen cardiology and had a stress test and echocardiogram last week. ECHO results from 03/16/2021: Conclusion 1. Mildly enlarged left atrium, normal left ventricular size, visually estimated ejection fraction of 50% with no regional wall motion abnormality, diastolic parameters are inconclusive. 2. Trace mitral and tricuspid regurgitation. 3. No significant pericardial effusion noted. Nuclear stress test results from 03/11/2021: Conclusion: 1. The EKG portion of the Lexiscan is nondiagnostic 2. No scintigraphic evidence of reversible ischemia seen, computer derived ejection fraction is 37% however during the study frequent ectopic beats were present which may underestimate the ejection fraction by gated SPECT 3. Normal perfusion however low ejection fraction as described above renders the study is abnormal. Clinical correlation is recommended, and echocardiogram will be better modality to evaluate left ventricular systolic function. Initial laboratory data are as follows: 03/18/21 05:00: WBC 11.2 H, RBC 5.48, Hgb 16.0, Hct 49.6, MCV 90.6, MCH 29.1, MCHC 32.2, RDW 13.9, Plt Count 187, MPV 8.9, Neut % (Auto) 75.4, Lymph % (Auto) 15.0, [place] % (Auto) 5.4, Eos % (Auto) 3.4, Baso % (Auto) 0.8, Neut # (Auto) 8.5 H, Lymph # (Auto) 1.7, [place] # (Auto) 0.6, Eos # (Auto) 0.4, Baso # (Auto) 0.1 03/18/21 05:00: Sodium 140, Potassium 4.0, Chloride 106, Carbon Dioxide 29, Anion Gap 9.0, BUN 17, Creatinine 0.80, Estimated Creat Clear 178, Estimated GFR 101, Est GFR ( Amer) 122, Glucose 172 H, Calcium 9.0, Total Bilirubin 0.6, Direct Bilirubin 0.2, Conjugated Bilirubin 0.0, Indirect Bilirubin 0.4, Unconjugated Bilirubin 0.4, AST 21, ALT 25, Alkaline Phosphatase 81, Troponin I < 0.01, C-Reactive Protein 6.2 H, Total Protein 6.9, Albumin 4.4 03/18/21 05:00: ESR 2 03/18/21 05:00: Procalcitonin 0.066 CXR shows no acute findings He had a follow-up appointment with cardiology today but chest pain became worse yesterday when at work and thus he presented to the emergency room earlier this morning. He describes his work requiring heavy lifting, pushing and pulling throughout the shift. He also describes shortness of breath. The pain is in the left anterior chest and he describes it as a burning-like pain. He has had some nausea but no vomiting. In the emergency room he did receive a nitroglycerin which did help the pain somewhat but he feels that it is returning at present. Decision has been made to admit the patient for cardiac work-up and possible cardiac cath. Cardiology will see him this a.m. <Jazmine Wallis 03/18/21 09:40> [facility] History Medical History: Reports:: Asthma, Atrial Fibrillation, Diabetes Mellitus Type 2, Gastroesophageal Reflux Disease(GERD), Hyperlipidemia, Hypertension Denies:: Anxiety, Depression, Diabetes Mellitus Type 1, Internal Pacemaker, Seizures <Jazmine Wallis 03/18/21 08:22> *Have you ever received a pneumonia vaccine?: No <Jazmine Wallis 03/18/21 08:22> *Have you received a flu vaccine this season?: Yes <Jazmine Wallis 03/18/21 08:22> Other Medical History: Reports: Arthritis, Hypothyroidism <Jazmine Wallis 03/18/21 08:22> Laterality Cases: Left: Arthroscopy Shoulder, Right: Arthroscopy Knee, Bilateral: Myringotomy (Ear Tubes), Other <Jazmine Wallis 03/18/21 08:22> Other Surgeries: Yes: Cardiac Catheterization, Coronary Stent (One in heart ), Other (ear tubes, m
[2021-03-18 08:22] LABS: Troponin I < 0.01 ng/ml (0.00-0.034)
--- NOTE | 2021-03-18 08:53 | P.CONPHA_ITS ---
[facility] Pharmacy VTE Monitoring - Patient Demographics Admission date: 03/18/21 Report Date: 03/18/21 Time: 08:53 Allergies/Adverse Reactions: Patient Allergies aspirin Allergy (Severe, Verified 03/05/21 14:19) Hives Penicillins Allergy (Severe, Verified 03/05/21 14:19) Anaphylaxis Height: 1.73 m Weight: 117.934 kg Patient Problems: Current Active Problems (Last Updated 07/12/19 @ 14:11 by Anay Cruz RN) Unstable angina pectoris (Acute) Obesity (BMI 30-39.9) (Acute) Type 2 diabetes, uncontrolled, with neuropathy (Chronic) Status post insertion of drug-eluting stent into left anterior descending (LAD) artery (Chronic) Hypothyroidism (Acute) - VTE Risk Labs: VTE Related Lab Results Hgb 16.0 g/dL (14.1-18.0) 03/18/21 05:00 Hct 49.6 % (42.0-52.0) 03/18/21 05:00 Plt Count 187 K/mm3 (142-424) 03/18/21 05:00 BUN 17 mg/dl (9-20) 03/18/21 05:00 Creatinine 0.80 mg/dl (0.66-1.25) 03/18/21 05:00 Estimated Creat Clear 178 mL/min (50-200) 03/18/21 05:00 - Prophylaxis VTE Prophylaxis Ordered?: Yes Types of VTE Prophylaxis: TEDS Knee High, Pharmacological Location of Applied Device: Bilateral Lower Extremeties Pharmacologic Type: Other (XARELTO)
--- NOTE | 2021-03-18 09:30 | HMH.CNCARD ---
History of Present Illness Consult date: 03/18/21 Requesting physician: Pelon Sainz Consult reason: chest pain Chief complaint: chest pain History of present illness: This is a 55-year-old gentleman who presented to the emergency department with complaints of chest pain. He has a history of coronary artery disease with stenting, atrial fibrillation, hypertension, hyperlipidemia, diabetes and is a current tobacco user. The patient states that he has been having chest pain for approximately the last 2 to 3 weeks. This is a pressure sensation in the substernal aspect of his chest and radiates to his face and causes numbness. The patient states that at its worst the pain is a 5 out of 10 in intensity. It is associated with shortness of breath and a little bit of nausea. He denies any diaphoresis or clamminess. He states that he does get really dizzy as well with the chest pain and pressure. The patient states that sometimes he also has a burning sensation in the left side of his chest with the pressure. He states that his symptoms are worse with exertion and nothing really helps to improve the pain. He states that at times the pressure in his chest will last for several hours before it improves. It did improve with nitroglycerin in the emergency department. The patient states that he was working yesterday with heavy lifting and pushing and pulling throughout his shift at work and that is when he had onset of symptoms. The patient had a stress test last week which showed no ischemia but was abnormal because he had an ejection fraction of 37%. An echocardiogram showed an ejection fraction of 50%. There is a description in the patient's ejection fraction. He is having symptoms consistent to the symptoms he was having when he needed his last stenting. [facility] History I have reviewed the patient's past medical history: Yes Medical History: Reports:: Asthma, Atherosclerotic Heart Disease, Atrial Fibrillation, Coronary Artery Disease, Diabetes Mellitus Type 2, Gastroesophageal Reflux Disease(GERD), Hyperlipidemia, Hypertension Denies:: Anxiety, Depression, Diabetes Mellitus Type 1, Internal Pacemaker, Seizures *Have you ever received a pneumonia vaccine?: No *Have you received a flu vaccine this season?: Yes Other Medical History: Reports: Arthritis, Hypothyroidism Laterality Cases: Left: Arthroscopy Shoulder, Right: Arthroscopy Knee, Bilateral: Myringotomy (Ear Tubes), Other Other Surgeries: Yes: Cardiac Catheterization, Coronary Stent (One in heart ), Other (ear tubes, mastoid surgery, left shoulder surgery, right leg surgery). No: Pacemaker Amputation: No Fractures: Yes - *Social History Smoking Status: Current every day smoker Tobacco Type: smokeless tobacco # Packs/Day (cigarettes): 0 #Yrs smoked (if former smoker): 0 Alcohol Intake: never Alcohol Intake Frequency:: a few times a month Substance Use Type: denies use *Occupational Status:: employed Housing: house Household Members: spouse, children *Travel in the last 8 weeks: None - Psychiatric History Pschychiatric History:: Denies:: Anxiety, Depression Family Hx:: Cancer, Coronary Artery Disease, Diabetes, Heart Attack, Hyperlipidemia, Hypertension Meds Home Medications Medication Instructions Recorded Confirmed Type clopidogrel 75 mg tablet 75 mg PO DAILY 12/08/17 03/18/21 History Atorvastatin Calcium [Atorvastatin 40 mg PO HS 10/21/18 03/18/21 History 40mg Tab] Rivaroxaban [Xarelto 20mg Tablet*] 20 mg PO DAILY 10/21/18 03/18/21 History ropinirole 0.5 mg tablet 0.5 - 1 mg PO HS 01/02/20 03/18/21 History tamsulosin 0.4 mg capsule 0.4 mg PO DAILY cap 01/10/20 03/18/21 History glimepiride 4 mg tablet 4 mg PO DAILY tab 07/31/20 03/18/21 History Pantoprazole Sodium 40 mg PO DAILY 03/18/21 03/18/21 History bisoproloL fumarate [Bisoprolol 10 mg PO HS 03/18/21 03/18/21 History 10mg Tablet] Allergies Allergy/AdvReac Type Severity Reaction Status Date / Time aspirin Allergy
--- NOTE | 2021-03-18 10:50 | HMH.PHAINT ---
MEDICATION RECONCILIATION COMPLETED ON PATIENT USING EXTERNAL FILL HISTORY FROM PHARMACY, PATIENT INTERVIEW, AND LIST FROM [facility] OFFICE. -[facility]
[2021-03-18 17:16] LABS: POC Glucose,Bedside 155 (70-110)
--- NOTE | 2021-03-18 18:27 | PC.NURSE ---
air in tracelet was increased at this time r/t pt bleeding when air was decreased to 11.
[2021-03-19] VITALS: BP 101/55; PULSE 70; PULSE 74; RESP 20; TEMP 36.8; O2SAT 94
[2021-03-19 00:01] LABS: POC Glucose,Bedside 156 (70-110)
--- NOTE | 2021-03-19 00:25 | PC.NURSE ---
PATIENT A&O X4, LUNGS: RIGHT SIDE: EXPIRATORY WHEEZING HEARD, LEFT SIDE CLEAR. CATHERIZATION SITE IS CLEAN, DRY AND INTACT. NO BRUISING OR DRAINAGE NOTED. PATIENT REFUSED FLUIDS DURING THIS RN SHIFT. NO NEW CONCERNS OR NEEDS AT THIS TIME.
[2021-03-19 04:00] VITALS: BP 125/80; PULSE 70; PULSE 71; RESP 20; TEMP 36.6; O2SAT 97; BMI 40.0
[2021-03-19 05:41] LABS: POC Glucose,Bedside 130 (70-110)
[2021-03-19 06:55] LABS: Basophils # 0.1 K/mm3 (0-0.2); Basophils % 0.5 % (0.1-2.0); Eosinophils # 0.4 K/mm3 (0.0-0.4); Eosinophils % 3.3 % (0.1-12.0); Hematocrit 45.9 % (42.0-52.0); Hemoglobin 15.2 g/dL (14.1-18.0); Lymphocytes # 1.8 K/mm3 (0.7-4.5); Lymphocytes % 16.8 % (10-50); Mean Corpuscular Hemoglobin 29.1 pg (27.0-31.2); Mean Corpuscular Volume 88.4 fl (80-94); Mean Platelet Volume 8.7 fl (7.4-10.4); Monocytes # 0.4 K/mm3 (0.1-1.0); Monocytes % 3.8 % (1.7-9.3); Neutrophils # 8.2 K/mm3 (1.8-7.8); Neutrophils % 75.6 % (37.0-80.0); Platelet Count 202 K/mm3 (142-424); Red Cell Distribution Width 13.9 % (11.5-17.5); White Blood Count 10.8 K/mm3 (4.8-10.8)
[2021-03-19 07:05] LABS: Blood Urea Nitrogen 15 mg/dl (9-20); Calcium 9.1 mg/dl (8.4-10.2); Carbon Dioxide 25 mmol/L (22.0-30.0); Chloride 103 mmol/L (98-107); Chol/HDL Ratio 4.9 (1-3.5); Cholesterol 122 mg/dl (140-200); Creatinine Clearance Estimated 181 mL/min (50-200); Estimated Glomerular Filt Rate 101 ml/min (>60); GFR (African American) 122 ML/MIN (>60); Glucose 215 mg/dl (74-100); HDL Cholesterol 25 mg/dl (40-60); Sodium 138 mmol/L (136-145); Triglycerides 137 mg/dl (30-150); VLDL Cholesterol 27 mg/dL (0-40)
[2021-03-19 08:00] VITALS: BP 118/64; PULSE 76; RESP 18; TEMP 36.8; O2SAT 96
--- NOTE | 2021-03-19 08:41 | HMH.ACPN2 ---
<Mary Domínguez - Last Filed: 03/19/21 08:41> Internal Medicine - PN: Subj *Date: 03/19/21 *Time: 08:41 Interval history: Patient states he is feeling better today. His chest pain has improved. He states he was able to rest better last night. He does want to discuss his anxiety with Dr. Sainz. He feels like he may need to be on some medication. He is also concerned that his body has felt stiff recently. Exam Vital signs and Labs for Last 24 Hours: Temp Pulse Resp BP Pulse Ox 98 F 71 20 125/80 97 03/19/21 04:00 03/19/21 04:00 03/19/21 04:00 03/19/21 04:00 03/19/21 04:00 Laboratory Results - last 24 hr 03/18/21 16:57: POC Glucose 155 H 03/18/21 20:40: POC Glucose 156 H 03/19/21 05:09: POC Glucose 130 H 03/19/21 06:20: WBC 10.8, RBC 5.20, Hgb 15.2, Hct 45.9, MCV 88.4, MCH 29.1, MCHC 33.0, RDW 13.9, Plt Count 202, MPV 8.7, Neut % (Auto) 75.6, Lymph % (Auto) 16.8, [place] % (Auto) 3.8, Eos % (Auto) 3.3, Baso % (Auto) 0.5, Neut # (Auto) 8.2 H, Lymph # (Auto) 1.8, [place] # (Auto) 0.4, Eos # (Auto) 0.4, Baso # (Auto) 0.1 03/19/21 06:20: Sodium 138, Potassium 4.0, Chloride 103, Carbon Dioxide 25, Anion Gap 14.0, BUN 15, Creatinine 0.80, Estimated Creat Clear 181, Estimated GFR 101, Est GFR ( Amer) 122, Glucose 215 H, Calcium 9.1, Magnesium 2.0, Triglycerides 137, Cholesterol 122 L, LDL Cholesterol Direct 66.30 L, VLDL Cholesterol 27, HDL Cholesterol 25 L, Cholesterol/HDL Ratio 4.9 H I & O for Last 24 hours: Intake & Output 03/16/21 03/17/21 03/18/21 03/19/21 11:59 11:59 11:59 11:59 Intake Total 610 / 610 Balance 610 / 610 Weight 270 lb 264 lb Microbiology Reports for the Last 24 Hours: Microbiology 03/18/21 05:28 Nasopharyngeal Coronavirus COVID-19 PCR - Final Radiology Reports for the Last 24 Hours: Cardiac catheterization IMPRESSION Patent coronary arteries as described above Preserved ejection fraction Elevated LVEDP which is the likely etiology for patient's angina PLAN 1. Treatment of diastolic dysfunction which is producing patient's angina 2. Continue risk factor modification - Constitutional no acute distress - *Routine Respiratory Exam Present: CTA bilaterally - *Routine Cardiovascular Exam Present: RRR - *Routine Abdominal Exam Present: soft, normoactive bowel sounds. Absent: tenderness - *Routine Extremities Exam Absent: cyanosis, clubbing, edema - *Routine Skin Exam Present: warm. Absent: rash - *Routine Neurological Exam Present: alert, oriented X3 Assessment and Plan (1) Unstable angina Status: Acute Category: Medical Code(s): I20.0 - Unstable angina (2) Coronary artery disease Status: Chronic Qualifiers: Coronary Disease-Associated Artery/Lesion type: [place] artery [place] vs. transplanted heart: [place] heart Associated angina: with stable angina Qualified Code(s): I25.118 - Atherosclerotic heart disease of [place] coronary artery with other forms of angina pectoris Category: Medical Code(s): I25.10 - Atherosclerotic heart disease of [place] coronary artery without angina pectoris (3) Paroxysmal atrial fibrillation Status: Chronic Category: Medical Code(s): I48.0 - Paroxysmal atrial fibrillation (4) Diabetes mellitus Status: Chronic Qualifiers: Diabetes mellitus type: type 2 Diabetes mellitus penitentiary insulin use: without supervisor intermediates use Diabetes mellitus complication status: with neurologic complications Diabetes mellitus complication detail: with polyneuropathy Qualified Code(s): E11.42 - Type 2 diabetes mellitus with diabetic polyneuropathy Category: Medical Code(s): E11.9 - Type 2 diabetes mellitus without complications (5) Hyperlipidemia Status: Chronic Qualifiers: Hyperlipidemia type: mixed hyperlipidemia Qualified Code(s): E78.2 - Mixed hyperlipidemia Category: Medical Code(s): E78.5 - Hyperlipidemia, unspecified (6) Hypertension Status: Chronic
--- NOTE | 2021-03-19 09:20 | HMH.PNCARD ---
Subjective Date: 03/19/21 Time: 09:20 Principal diagnosis: Chest pressure, SOA Interval history: 55-year-old white male sitting in bedside chair no acute distress. Still with some chest pressure shortness of breath but improved since admission. Cardiac catheter results reviewed with recommendations for decreasing sodium and starting diuretic therapy. Patient states he drinks multiple sodas per day and will have to try and cut down. Exam Vital signs and Labs for Last 24 Hours: Temp Pulse Resp BP Pulse Ox 98 F 71 20 125/80 97 03/19/21 04:00 03/19/21 04:00 03/19/21 04:00 03/19/21 04:00 03/19/21 04:00 Laboratory Results - last 24 hr 03/18/21 16:57: POC Glucose 155 H 03/18/21 20:40: POC Glucose 156 H 03/19/21 05:09: POC Glucose 130 H 03/19/21 06:20: WBC 10.8, RBC 5.20, Hgb 15.2, Hct 45.9, MCV 88.4, MCH 29.1, MCHC 33.0, RDW 13.9, Plt Count 202, MPV 8.7, Neut % (Auto) 75.6, Lymph % (Auto) 16.8, [place] % (Auto) 3.8, Eos % (Auto) 3.3, Baso % (Auto) 0.5, Neut # (Auto) 8.2 H, Lymph # (Auto) 1.8, [place] # (Auto) 0.4, Eos # (Auto) 0.4, Baso # (Auto) 0.1 03/19/21 06:20: Sodium 138, Potassium 4.0, Chloride 103, Carbon Dioxide 25, Anion Gap 14.0, BUN 15, Creatinine 0.80, Estimated Creat Clear 181, Estimated GFR 101, Est GFR ( Amer) 122, Glucose 215 H, Calcium 9.1, Magnesium 2.0, Triglycerides 137, Cholesterol 122 L, LDL Cholesterol Direct 66.30 L, VLDL Cholesterol 27, HDL Cholesterol 25 L, Cholesterol/HDL Ratio 4.9 H I & O for Last 24 hours: Intake & Output 03/16/21 03/17/21 03/18/21 03/19/21 11:59 11:59 11:59 11:59 Intake Total 610 / 610 Balance 610 / 610 Weight 270 lb 264 lb Microbiology Reports for the Last 24 Hours: Microbiology 03/18/21 05:28 Nasopharyngeal Coronavirus COVID-19 PCR - Final - Constitutional no acute distress - *Routine HEENT Exam Head: Present: normocephalic Eye: Present: EOMI, PERRL ENT: Present: mucous membranes moist - *Routine Neck Exam Present: supple. Absent: lymphadenopathy - *Routine Respiratory Exam Present: CTA bilaterally - *Routine Cardiovascular Exam Present: RRR - *Routine Abdominal Exam Present: soft, normoactive bowel sounds. Absent: tenderness - *Routine Extremities Exam Absent: cyanosis, clubbing, edema - *Routine Skin Exam Present: warm. Absent: rash - *Routine Neurological Exam Present: alert, oriented X3 Progress Note: A&P (1) Unstable angina Status: Acute (2) Coronary artery disease Status: Chronic (3) Paroxysmal atrial fibrillation Status: Chronic (4) Diabetes mellitus Status: Chronic (5) Hyperlipidemia Status: Chronic (6) Hypertension Status: Chronic (7) History of heart artery stent Status: Chronic (8) GERD (gastroesophageal reflux disease) Status: Chronic (9) Tobacco use disorder Status: Chronic (10) Elevated left ventricular end-diastolic pressure (LVEDP) Status: Acute Assessment and Plan for All Diagnoses:: Chest pain related to diastolic dysfunction with elevated left ventricular end-diastolic pressure. Diuretic therapy and dietary changes recommended. Okay for discharge home from cardiology standpoint Continue bisoprolol, atorvastatin, Ranexa, Xarelto (history of PAF) and the addition of Lasix. Follow-up in the office in [address] WOLF for further guidance on medical therapy.
--- NOTE | 2021-03-19 10:18 | PC.NURSE ---
verified with stephanie robbins and dr. aj that it was okay to send a ranexa prescription 500mg bid for the patient to their pharmacy
--- NOTE | 2021-03-20 19:46 | HMH.DCSUM ---
General - General Admission date:: 03/18/21 Discharge date: 03/19/21 HPI HPI: Mr. Pugh is an 25-year-old male with a history of coronary artery disease with previous stent placement, atrial fibrillation, hypertension, type 2 diabetes mellitus, hyperlipidemia, esophageal reflux, and tobacco use disorder who presented to [facility] emergency room for evaluation after persistant chest discomfort. He describes having chest pain for the last 2 to 3 weeks. He has seen cardiology and had a stress test and echocardiogram last week. ECHO results from 03/16/2021: Conclusion 1. Mildly enlarged left atrium, normal left ventricular size, visually estimated ejection fraction of 50% with no regional wall motion abnormality, diastolic parameters are inconclusive. 2. Trace mitral and tricuspid regurgitation. 3. No significant pericardial effusion noted. Nuclear stress test results from 03/11/2021: Conclusion: 1. The EKG portion of the Lexiscan is nondiagnostic 2. No scintigraphic evidence of reversible ischemia seen, computer derived ejection fraction is 37% however during the study frequent ectopic beats were present which may underestimate the ejection fraction by gated SPECT 3. Normal perfusion however low ejection fraction as described above renders the study is abnormal. Clinical correlation is recommended, and echocardiogram will be better modality to evaluate left ventricular systolic function. CXR shows no acute findings He had a follow-up appointment with cardiology today but chest pain became worse yesterday when at work and thus he presented to the emergency room earlier this morning. He describes his work requiring heavy lifting, pushing and pulling throughout the shift. He also describes shortness of breath. The pain is in the left anterior chest and he describes it as a burning-like pain. He has had some nausea but no vomiting. In the emergency room he did receive a nitroglycerin which did help the pain somewhat but he feels that it is returning at present. Decision has been made to admit the patient for cardiac work-up and possible cardiac cath. Cardiology will see him this a.m. Hospital Course Hospital Course: The patient was admitted and cardiology was consulted. Cardiology took the patient to the [facility] and his cardiac cath showed patent coronary arteries with a preserved ejection fraction, but an elevated LVEDP, which was likely the etiology for the patient's angina. I started him on Lasix 40 mg daily and Aldactone 25 mg daily. They felt he was stable for discharge and would need a BMP in 1 week as well as a follow-up in their office. By 03/19/2021, he was feeling better and his chest pain had improved. He was able to rest. He did want to discuss starting on an anxiety medication due to a recent increase in his anxiety. The patient was stable to be discharged and will follow up with cardiology in [address] Sainz in 2 weeks. He was discharged on Lasix, spironolactone, and Ranexa. He was also started on citalopram. Objective Vital signs: Temp Pulse Resp BP Pulse Ox 98.2 F 76 18 118/64 96 03/19/21 08:00 03/19/21 08:00 03/19/21 08:00 03/19/21 08:00 03/19/21 08:00 Narrative: - Constitutional no acute distress Comments: sitting on the side of the stretcher and appears comfortable - *Routine HEENT Exam Head: Present: normocephalic, atraumatic Eye: Present: PERRL. Absent: conjunctival icterus, scleral injection ENT: Present: mucous membranes moist, oropharynx clear - *Routine Neck Exam Present: supple, full ROM. Absent: carotid bruit, lymphadenopathy, thyromegaly - Routine Chest/Breast/Axilla Exam Chest wall: Absent: tenderness - *Routine Respiratory Exam Present: CTA bilaterally (A&P) - *Routine Cardiovascular Exam Present: RRR (monitor showing SR ) - *Routine Abdominal Exam Present: soft, normoactive alma delia
== END 2021-03-19 10:27 | disposition home or self-care (01) ==
LOC: ER 06:36 → 2ND 09:39
PROVIDERS: Internal Medicine; Admitting Provider Family Medicine; Emergency Provider Emergency Medicine; PCP Family Medicine; Visit Provider Family Medicine
DX: R07.9 Chest pain, unspecified (principal); I48.0 Paroxysmal atrial fibrillation; I25.110 Atherosclerotic heart disease of native coronary artery with unstable angina pectoris; I10 Essential (primary) hypertension; Z95.5 Presence of coronary angioplasty implant and graft; F17.200 Nicotine dependence, unspecified, uncomplicated; E11.9 Type 2 diabetes mellitus without complications; T82.855A Stenosis of coronary artery stent, initial encounter; Y83.1 Surgical operation with implant of artificial internal device as the cause of abnormal reaction of the patient, or of later complication, without mention of misadventure at the time of the procedure; Z79.01 Long term (current) use of anticoagulants; Z79.84 Long term (current) use of oral hypoglycemic drugs; Z79.899 Other long term (current) drug therapy
CPT/HCPCS: 71046; 80048; 80061; 80076; 82962; 83735; 84145; 84484; 85025; 85651; 86140; 93005; 93458; 96365; 96375; 99152; 99283; C1725; C1760; C1769; G0378; J1644; Q9967; U0003

== ENCOUNTER → 2021-03-26 12:41 | Outpatient (CLI) | payer OTHER, SELFPAY ==
[2021-03-26 13:07] LABS: Basophils # 0.1 K/mm3 (0-0.2); Basophils % 0.8 % (0.1-2.0); Eosinophils # 0.4 K/mm3 (0.0-0.4); Eosinophils % 2.6 % (0.1-12.0); Hematocrit 47.5 % (42.0-52.0); Hemoglobin 15.8 g/dL (14.1-18.0); Lymphocytes # 2.4 K/mm3 (0.7-4.5); Lymphocytes % 18.2 % (10-50); Mean Corpuscular HGB Conc 33.3 g/dL (31.8-35.4); Mean Corpuscular Hemoglobin 28.8 pg (27.0-31.2); Mean Corpuscular Volume 86.3 fl (80-94); Mean Platelet Volume 8.6 fl (7.4-10.4); Monocytes # 0.6 K/mm3 (0.1-1.0); Monocytes % 4.5 % (1.7-9.3); Neutrophils # 9.9 K/mm3 (1.8-7.8); Neutrophils % 73.9 % (37.0-80.0); Platelet Count 222 K/mm3 (142-424); Red Cell Distribution Width 14.3 % (11.5-17.5); White Blood Count 13.4 K/mm3 (4.8-10.8)
[2021-03-26 13:29] LABS: Chloride 102 mmol/L (98-107)
[2021-03-26 13:30] LABS: Potassium 4.2 mmoL/L (3.5-5.1); Sodium 137 mmol/L (136-145)
[2021-03-26 13:32] LABS: Blood Urea Nitrogen 17 mg/dl (9-20); Estimated Glomerular Filt Rate 88 ml/min (>60); GFR (African American) 107 ML/MIN (>60)
[2021-03-26 13:33] LABS: Anion Gap 15.2 mEq/L (5-15); Calcium 9.7 mg/dl (8.4-10.2); Carbon Dioxide 24 mmol/L (22.0-30.0); Glucose 143 mg/dl (74-100); Magnesium 1.9 mg/dl (1.6-2.3)
== END ==
PROVIDERS: PCP Family Medicine; Visit Provider Nurse Practitioner Family
DX: R06.09 Other forms of dyspnea (principal); I25.10 Atherosclerotic heart disease of native coronary artery without angina pectoris; R94.30 Abnormal result of cardiovascular function study, unspecified; I48.0 Paroxysmal atrial fibrillation; I49.3 Ventricular premature depolarization; Z72.0 Tobacco use
CPT/HCPCS: 36415; 80048; 83735; 85025; 93225

== ENCOUNTER → 2021-04-24 18:43 | Outpatient (CLI) | payer OTHER, SELFPAY | PROVIDERS: PCP Family Medicine; Visit Provider Family Medicine | DX: G47.33 Obstructive sleep apnea (adult) (pediatric) (principal); I10 Essential (primary) hypertension; R06.83 Snoring; E66.9 Obesity, unspecified | CPT/HCPCS: 95806 ==

== ENCOUNTER 2021-05-04 09:02 | Emergency (ER) | payer OTHER, SELFPAY ==
[2021-05-04 09:05] VITALS: BP 135/79; PULSE 97; RESP 19; TEMP 37.1; O2SAT 98; BMI 38.7
--- NOTE | 2021-05-04 09:34 | HMH.EDUTC ---
[facility] [place] Clinical Impression: Otitis media Qualifiers: Otitis media type: unspecified Laterality: right Qualified Code(s): H66.91 - Otitis media, unspecified, right ear Disposition: Home, Self-Care Condition on Discharge: Good Instructions: Middle Ear Infection, Diarrhea Additional Instructions: Drink extra fluids with and between meals. If you have difficulty drinking, try very small amounts of water or suck on ice chips. ? Avoid fruit juices, as these do not replace minerals and can actually increase diarrhea. ? Children and adults can use sports drinks to replenish electrolytes. Younger children and infants should use products formulated for children, like oral rehydration solutions. ? Eat food in small amounts and let your stomach recover. ? Get lots of rest. You may feel tired or weak. ? No greasy or fried foods for the next 24-48 hours BRAT diet Bananas Rice Apples and [place] ? Make sure to drink plenty of liquids ? Return if needed ? Straight to ER if any life threatening symptoms ? You was given an outpatient order for diarrhea panel, please collect specimen and bring back to outpatient lab then call back to the [facility] or follow up with family doctor for results ? Follow up with family doctor in the next 48-72 hours if no improvement or any worsening of symptoms Use drops for ear as prescribed Prescriptions: Ofloxacin [Floxin 0.3% OTIC Solution 5mL] 10 drops OT BID #1 bottle Transmission Status: Received by [employer] #[id number] Ondansetron [Zofran 4mg ODT] 4 mg PO TIDP PRN #6 tab PRN Reason: Nausea Transmission Status: Received by [employer] #[id number] Referrals: Pelon Sainz MD [Primary Care Provider] - As needed Time of Disposition: 09:58 Medical Decision Making - Enoc Inquiry Pt receiving controlled substance: No Enoc was queried for this patient: No Vital Signs: 05/04/21 09:05 05/04/21 10:12 Temperature 98.7 F 98.7 F Temperature Source Oral Pulse Rate 97 H Pulse Rate [Right Brachial] 97 H Respiratory Rate 19 19 Blood Pressure 135/79 Blood Pressure [Right Arm] 135/79 Blood Pressure Mean [Right Arm] 97 Blood Pressure Source [Right Arm] Automatic Cuff Blood Pressure Position [Right Arm] Sitting 02 Sat by Pulse Oximetry 98 Oxygen Delivery Method Room Air - Lab Data Lab Results 05/04/21 10:10: Stl Aeromonas (PCR) Not detected, Stl C. cayetanensis PCR Not detected, Stool Rotavirus (PCR) Not detected, Stl Adenov F 40/41 PCR Not detected, Stool Astrovirus (PCR) Not detected, Stool Campylobacter PCR Not detected, Stl C.difficile Tox PCR Not detected, Stool Cryptosporidium PCR Not detected, Stl E.coli Shiga Tox PCR Not detected, Stool E coli O157 PCR Not detected, Stl Enterotoxigenic E PCR Not detected, Stool EPEC (PCR) Not detected, Stool EAEC (PCR) Not detected, Stl E. histolytica PCR Not detected, Stool Giardia Lamblia PCR Not detected, Stool Salmonella PCR Not detected, Stool Sapovirus (PCR) Not detected, Stl P. shigelloides PCR Not detected, Stl Shigella/EIEC PCR Not detected, St Y.enterocolitica PCR Not detected, Stool Vibrio (PCR) Not detected, Stl Vibrio cholerae PCR Not detected, Stl Norovirus GI/GII PCR Not detected Medical Decision Narrative: Patient states that he has take zofran in the past without reactions or complications [facility] [place] - General Stated complaint: upset stomach, lt ear pain Time Seen by Provider: 05/04/21 09:34 Mode of Arrival: Ambulatory Source of Information: Patient Limitations: No Limitations Description of Symptoms (Recalled from Triage Doc. by RN): PATIENT C/O NAUSEA, DIARRHEA, AND LEFT EAR PAIN X 3 DAYS HEENT Symptoms (Recalled from RN notes): Yes Resp Symptoms (Recalled from RN notes): No Skin Symptoms (Recalled from RN notes): No MS Symptoms (Recalled from RN notes): No Functional Status (Recalled from RN notes): WNL - History of Present Illness Provider Complaint: Patient states that he has ear problems in the past Stat
[2021-05-04 10:12] VITALS: BP 135/79; PULSE 97; RESP 19; TEMP 37.1; O2SAT 98
[2021-05-04 10:34] LABS: Adenovirus F 40/41, stool Not Detected (NotDetected); Astrovirus Not Detected (NotDetected); Campylobacter Not Detected (NotDetected); Clostridium Difficile A/B, PCR Not Detected (NotDetected); Cryptosporidium Not Detected (NotDetected); Cyclospora Cayetanesis Not Detected (NotDetected); Entamoeba histolytica Not Detected (NotDetected); Enteroaggregative E coli Not Detected (NotDetected); Enteropathogenic E coli Not Detected (NotDetected); Enterotoxigenic E coli Not Detected (NotDetected); Giardia lamblia Not Detected (NotDetected); Norovirus Not Detected (NotDetected); Plesimonas Shigalloides, PCR Not Detected (NotDetected); Rotavirus A Not Detected (NotDetected); Salmonella, PCR Not Detected (NotDetected); Sapovirus Not Detected (NotDetected); Shiga-like toxin E coli Not Detected (NotDetected); Shigella Enterovasive E coli Not Detected (NotDetected); Vibrio Cholerae Not Detected (NotDetected); Vibrio, PCR Not Detected (NotDetected); Yersinia Entercolitica, PCR Not Detected (NotDetected)
== END 2021-05-04 10:15 | disposition home or self-care (01) ==
PROVIDERS: Emergency Provider Nurse Practitioner; PCP Family Medicine
DX: H66.91 Otitis media, unspecified, right ear (principal); I48.91 Unspecified atrial fibrillation; E03.9 Hypothyroidism, unspecified; I25.10 Atherosclerotic heart disease of native coronary artery without angina pectoris; E11.9 Type 2 diabetes mellitus without complications; K21.9 Gastro-esophageal reflux disease without esophagitis; E78.5 Hyperlipidemia, unspecified; I10 Essential (primary) hypertension; F17.210 Nicotine dependence, cigarettes, uncomplicated; Z79.899 Other long term (current) drug therapy
CPT/HCPCS: 87507; 99202; G0463

== ENCOUNTER 2021-11-19 09:19 | Emergency (ER) | payer OTHER, SELFPAY ==
[2021-11-19 09:51] VITALS: BP 130/86; PULSE 89; RESP 16; TEMP 36.6; O2SAT 98; BMI 36.9
[2021-11-19 09:56] LABS: UTC Strep Screen (Rapid) Negative (Negative)
[2021-11-19 10:04] VITALS: BP 130/86; PULSE 89; RESP 16; TEMP 36.6
--- NOTE | 2021-11-19 10:42 | HMH.EDUTC ---
[facility] [place] Disposition Clinical Impression: Gastroenteritis Disposition: Home, Self-Care Condition on Discharge: Good Instructions: Viral Gastroenteritis, DI for Viral Gastroenteritis -- Adult, Ondansetron Additional Instructions: Drink plenty of fluids. Take tylenol or ibuprofen for pain or fever. Take the medications as directed. Follow up with your regular doctor. GO TO THE ER FOR ANY WORSENING SYMPTOMS Take the zofran for nausea/vomiting. Start trying to drink fluids after you take the zofran. Water, gatorade or pedialyte would be best at first. Prescriptions: Ondansetron [Zofran 4mg ODT] 4 mg PO Q8HP PRN #20 tab PRN Reason: Nausea Transmission Status: Received by [employer] #[id number] Referrals: Pelon Sainz MD [Primary Care Provider] - Forms: Work/School Release Time of Disposition: 10:49 Medical Decision Making - Medical Records Medical records reviewed: No: I reviewed the patient's medical records. - Enoc Inquiry Pt receiving controlled substance: No Vital Signs: 11/19/21 09:51 11/19/21 10:04 Temperature 97.9 F 97.9 F Temperature Source Oral Pulse Rate 89 Pulse Rate [Left] 89 Respiratory Rate 16 16 Blood Pressure 130/86 Blood Pressure [Right Arm] 130/86 Blood Pressure Mean [Right Arm] 100 02 Sat by Pulse Oximetry 98 - Lab Data Lab results reviewed: Yes: I reviewed the patient's lab results. Lab Results 11/19/21 09:54: Strep Scn Rapid Clinic Negative Orders (Tests/Meds): ORDERS Category Date Time Status Strep Screen Confirmation Stat Micro 11/19/21 09:54 Received [facility] [place] HPI - General Stated complaint: vomiting, diarrhea Time Seen by Provider: 11/19/21 10:42 Mode of Arrival: Ambulatory Source of Information: Patient Limitations: No Limitations Description of Symptoms (Recalled from Triage Doc. by RN): pt c/o R ear ache and n/v/d since 0100 this am HEENT Symptoms (Recalled from RN notes): Yes Resp Symptoms (Recalled from RN notes): No Skin Symptoms (Recalled from RN notes): No MS Symptoms (Recalled from RN notes): No Functional Status (Recalled from RN notes): wnl - History of Present Illness Provider Complaint: He states that he woke up nauseated at around 0100 this am. Since then, he has had n/v/d. He has vomited multiple times. It seems like his vomitig is slowing down now because he hasn't vomited since 0600. He has had diarrhea multiple times also. He denies any fever/chills/congestion/ and cough. He denies abdominal pain, but he has had some abdominal cramping. - Related Data Home Medications Medication Instructions Recorded Confirmed clopidogrel 75 mg tablet 75 mg PO DAILY 12/08/17 08/13/21 Atorvastatin Calcium [Lipitor 40mg 40 mg PO DAILY 10/21/18 08/13/21 Tab] ropinirole 0.5 mg tablet 0.5 - 1 mg PO HS 01/02/20 08/13/21 tamsulosin 0.4 mg capsule 0.4 mg PO DAILY cap 01/10/20 08/13/21 glimepiride 4 mg tablet 4 mg PO DAILY tab 07/31/20 08/13/21 Empagliflozin/Metformin HCl 1 each PO DAILY 03/18/21 05/13/21 [Synjardy Xr 25-1,000 mg Tablet] Pantoprazole Sodium 40 mg PO DAILY 03/18/21 08/13/21 ranolazine 500 mg tablet,extended 500 mg PO DAILY tab 04/23/21 08/13/21 release,12 hr furosemide 40 mg tablet 40 mg PO DAILY tab 08/13/21 spironolactone 25 mg tablet 25 mg PO DAILY tab 08/13/21 Previous Rx's Medication Instructions Recorded Citalopram Hydrobromide 20 mg PO DAILY #30 tab 03/19/21 [Citalopram 20mg Tablet] bisoprolol fumarate 10 mg tablet 10 mg PO BID #60 tab 04/23/21 rivaroxaban 20 mg tablet 20 mg PO DAILY #30 tab 05/14/21 Ondansetron [Zofran 4mg ODT] 4 mg PO Q8HP PRN #20 tab 11/19/21 Allergies Allergy/AdvReac Type Severity Reaction Status Date / Time aspirin Allergy Severe Hives Verified 08/13/21 14:12 Penicillins Allergy Severe Anaphylaxis Verified 08/13/21 14:12 - Worker's Comp Is this a Worker's Comp case?: No [facility] History - Hepatitis A Screen Drug use history?: No
== END 2021-11-19 11:23 | disposition home or self-care (01) ==
PROVIDERS: Emergency Provider Nurse Practitioner Family; PCP Family Medicine
DX: K52.9 Noninfective gastroenteritis and colitis, unspecified (principal); Z20.822 Contact with and (suspected) exposure to COVID-19; E11.9 Type 2 diabetes mellitus without complications; I48.0 Paroxysmal atrial fibrillation; K21.9 Gastro-esophageal reflux disease without esophagitis; E78.5 Hyperlipidemia, unspecified; I10 Essential (primary) hypertension
CPT/HCPCS: 87880; 99203; C9803; G0463; U0003; U0005

== ENCOUNTER → 2021-12-08 10:41 | Outpatient (CLI) | payer OTHER, SELFPAY | PROVIDERS: PCP Family Medicine; Visit Provider Nurse Practitioner | DX: U07.1 COVID-19 (principal) | CPT/HCPCS: C9803; U0003; U0005 ==

== ENCOUNTER 2022-10-06 08:21 | Emergency (ER) | payer OTHER, SELFPAY ==
[2022-10-06 08:41] VITALS: BP 116/77; PULSE 77; RESP 18; TEMP 36.5; O2SAT 98; BMI 37.2
--- NOTE | 2022-10-06 08:54 | EXP.UTC ---
Discharge Plan Disposition Patient Disposition: Home, Self-Care Condition: Good Prescriptions Prescriptions: New ondansetron 4 mg Tablet,Disintegrating 4 mg PO Q8H PRN (Reason: Nausea) Qty: 20 0RF No Action clopidogrel [Plavix] 75 mg tablet 75 mg PO DAILY glimepiride 4 mg tablet 4 mg PO DAILY tamsulosin 0.4 mg capsule 0.4 mg PO DAILY ropinirole 0.5 mg tablet 0.5 - 1 mg PO HS Rx Instructions: administer 1-3 hours before bedtime ranolazine 500 mg tablet extended release 12 hr 500 mg PO DAILY bisoprolol fumarate 10 mg tablet 10 mg PO BID Qty: 60 5RF furosemide 40 mg tablet 40 mg PO DAILY spironolactone 25 mg tablet 25 mg PO DAILY rivaroxaban 20 mg tablet 20 mg PO DAILY Qty: 30 8RF atorvastatin 40 MG tablet 40 mg PO DAILY ondansetron 4 MG tablet,disintegrating 4 mg PO Q8HP PRN (Reason: Nausea) Qty: 20 0RF pantoprazole 40 MG tablet,delayed release (DR/EC) 40 mg PO DAILY empagliflozin-metformin 1 EACH tablet, IR - ER, biphasic 24hr 1 each PO DAILY citalopram 20 MG tablet 20 mg PO DAILY Qty: 30 0RF Referrals Follow up/Referrals: Pelon Sainz MD [Primary Care Provider] - See instructions Activity Restrictions/Add. Instructions Additional Instructions/Restrictions: Drink plenty of fluids. Take tylenol or ibuprofen for pain or fever. Take the medications as directed. Follow up with your regular doctor. GO TO THE ER FOR ANY WORSENING SYMPTOMS Clinical Impressions Clinical Impression: Gastroenteritis, Viral syndrome Stand Alone Forms Stand Alone Forms: Work/School Release Instructions Patient Instructions: Viral Gastroenteritis, Coronavirus Disease 2019, Preventing the Spread of Coronavirus Discharge Instructions Discharge ED Provider: Nilo Erickson [facility] General Stated complaint: Diarreah, vomitting Mode of Arrival: Ambulatory Source of Information: Patient Limitations: No Limitations Time Seen by Provider: 10/06/22 08:54 Description of Symptoms (Recalled from Triage Doc. by RN): pt comes in with c/o nausea, vomitting, diarrhea. symptoms began tuesday night. HEENT Symptoms (Recalled from RN notes): No Resp Symptoms (Recalled from RN notes): No Skin Symptoms (Recalled from RN notes): No MS Symptoms (Recalled from RN notes): No Functional Status (Recalled from RN notes): n/a History of Present Illness Provider Complaint: He states that he has had n/v/d, cough and he has felt bad for the past 2 days. He has been exposed to covid-19 at work. Related Data Home Medications Medication Instructions Recorded Confirmed clopidogrel 75 mg tablet (Plavix) 75 mg PO DAILY platelet inhibitor 12/08/17 08/13/21 atorvastatin 40 mg tablet 40 mg PO DAILY Cholesterol 10/21/18 08/13/21 ropinirole 0.5 mg tablet 0.5 - 1 mg PO HS restless legs 01/02/20 08/13/21 syndrome tamsulosin 0.4 mg capsule 0.4 mg PO DAILY prostate 01/10/20 08/13/21 glimepiride 4 mg tablet 4 mg PO DAILY Diabetes 07/31/20 08/13/21 empagliflozin 25 mg-metformin ER 1 each PO DAILY Diabetes 03/18/21 05/13/21 1,000 mg tablet,extended release 24hr pantoprazole 40 mg tablet,delayed 40 mg PO DAILY GERD 03/18/21 08/13/21 release ranolazine 500 mg tablet,extended 500 mg PO DAILY 04/23/21 08/13/21 release,12 hr furosemide 40 mg tablet 40 mg PO DAILY 08/13/21 spironolactone 25 mg tablet 25 mg PO DAILY 08/13/21 Previous Rx's Medication Instructions Recorded citalopram 20 mg tablet 20 mg PO DAILY #30 tabs 03/19/21 bisoprolol fumarate 10 mg tablet 10 mg PO BID Hypertension #60 tabs 04/23/21 ondansetron 4 mg disintegrating 4 mg PO Q8HP PRN Nausea #20 tabs 11/19/21 tablet rivaroxaban 20 mg tablet 20 mg PO DAILY Blood thinner #30 05/03/22 tabs ondansetron 4 mg disintegrating 4 mg PO Q8H PRN Nausea #20 tabs 10/06/22 tablet Allergies Allergy/AdvReac Type Severity Reaction Status Date / Time aspirin Allergy Severe Hive
[2022-10-06 08:56] LABS: UTC Influenza A Antigen Negative (Negative); UTC Influenza B Antigen Negative (Negative)
[2022-10-06 09:09] VITALS: BP 116/77; PULSE 77; RESP 18; TEMP 36.5
== END 2022-10-06 09:10 | disposition home or self-care (01) ==
PROVIDERS: Emergency Provider Nurse Practitioner Family; PCP Family Medicine
DX: K52.9 Noninfective gastroenteritis and colitis, unspecified (principal); B34.9 Viral infection, unspecified
CPT/HCPCS: 87804; 99212; G0463

== ENCOUNTER 2025-06-07 15:21 | Emergency (ER) | payer BC, SELFPAY ==
[2025-06-07 15:46] VITALS: BP 134/88; PULSE 104; RESP 16; TEMP 36.9; O2SAT 97; BMI 37.7
--- OUTSIDE RECORDS SUMMARY | 2025-06-07 15:48 | XMS_ITS | Clinical Summary ---
[facility] Organization [facility] Address [address] [place] [address] Care Team Providers Care Medical File Clerk Name Role Phone Evens Cifuentes MD Primary Care Provider Un available Social History Tobacco Use Types Packs/Day Years Used Date Smoking Tobacco: Never Assessed Abuse Screen Answer Date Recorded Unsafe at Home or Work/School Not on file Feels Threatened by Someone? Not on file 07/2023 Does Anyone Keep You from Co ntacting Others or Doint Things Outside the Home? Not on file 08/22/2023 Physical Sign of Abuse Present Not on file 1 Housing Stability Answer Date Recorded Current Living Arrangements Not on file 07/2023 Potentially Unsafe Housing Conditions Not on helga e 08/22/2023 Family and Community Support Answer Harpreet e Recorded Help with Day-to-Day Activities Not on file 08/22/2023 Lonely or Isolated Not on file 08/22/2023 Employment Answer Date Recorded Do you want help finding or keeping work or a kaci b? Not on file 08/22/2023 Disabilities Answer Date Recorded Concentrating, Remembering, or Making Decisions Difficulty Not on file 08/22/2023 Doing Errands Independently Difficulty Not on fi le 08/22/2023 Education Answer Date Recorded Help with school or training? Not on file Preferred Language Not on file 08/22/2023 Sex and Gender Information Value Date Recorded Sex Assigned at Not on file Legal Sex Male 9:58 AM EDT Gender Identity Not on file Sexual Orientation Not on file Plan of Treatment Health Maintenance Due Date Last Done Comments ANNUAL PHYSICAL 1965 HEPATITIS C SCREENING 1965 TDAP/TD VACCINES (1 - Tdap) 1986 COLOGUARD 2012 COLON CANCER SCREENING 5 YEAR SIGMOIDOSCOPY 2012 COLONOSCOPY [address] CANCER SCREENING 2012 CT COLONOGRAPHY 2012 FECAL OCCULT BLOOD TEST 2012 FIT Testing (1 year) 2012 Pneumococcal Vaccine 50+ (1 of 1 - PCV) 2017 ZOSTER VACCINE (1 of 2) 2017 COVID-19 Vaccine (1 - 2023- season) 2024 INFLUENZA VACCINE 08/14/2025 Care Teams Medical File Clerk Relationship Specialty Start Date End Date Evens Cifuentes MD PCP - General 07/14/15
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
[2025-06-07 16:12] VITALS: BP 134/84; PULSE 80; RESP 18; TEMP 37.1; O2SAT 97
[2025-06-07] MEDS: TET/DIPHTH/PERT-ADULT 0.5ML SYRINGE 0.5 ML IM (16:16)
[2025-06-07] MEDS: BACITRACIN ZINC OINT 30GM TUBE TP (16:18)
== END 2025-06-07 16:23 | disposition home or self-care (01) ==
PROVIDERS: Emergency Provider Student in an Organized Health Care Education/Training Program; PCP Family Medicine
DX: S61.203A Unspecified open wound of left middle finger without damage to nail, initial encounter (principal); I10 Essential (primary) hypertension; E11.9 Type 2 diabetes mellitus without complications; Z86.79 Personal history of other diseases of the circulatory system; Z79.01 Long term (current) use of anticoagulants; W26.8XXA Contact with other sharp object(s), not elsewhere classified, initial encounter; Z23 Encounter for immunization
CPT/HCPCS: 90471; 90715; 99283

== ENCOUNTER 2025-07-03 09:24 | Outpatient (CLI) | payer BC, SELFPAY ==
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
--- OUTSIDE RECORDS SUMMARY | 2025-07-02 07:10 | XMS_ITS ---
Author Organization [place] Address [address] [facility] [address] [place] [phone] Care Team Providers Care Seed Core Operator Name Role Phone Pelon Sainz [phone] REASON FOR VISIT due col Encounters Encounter Location Date Provider Diagnosis [place] [address] [facility] [address] [place] [phone] 07/02/2025 Pelongio Sainz Encounter for screen ing colonoscopy for [id number] patient Z12.11 Assessments Encounter Date Diagnosis (ICD Code) Assessment Notes Treatment Notes Treatment Clinical Notes Section Notes 07/02/2025 Encounter for screening colonoscopy for [id number] patient (ICD-10 - Z12.11) Plan Of Treatment Pending Test Test Name Order Date Cologuard 07/02/2025 Next Appt Details Provider Name:Pelon Scruggs ry, 09/23/2025 04:30:00 PM, [address] [facility] [address], [address], [place], [phone], Progress Notes * BRYSON GREENFIELDOB:1965 (60 yo M)Acc No.[id number]:07/02/2025 Patient: RUMA REVELES :1965 A ge:60 Y S ex:Male Address:[address] [place], [address] Subjective: * Chief Complaints: * D ue col * Medical History: * Surgical History: * Hospitalization/Major Diagno stic Procedure: * Medications: Objective: * Vitals: * Physical Examination: Assessment: * Assessment: 1. E ncounter for screening colonoscopy for [id number] patient - Z12.11 (Primary) Plan: * Treatment: * Procedure Codes: * true * Date: Generated for Joann gallagher/Miles/Dipti on: 0 07/04/2025 02:48 PM EDT
[2025-07-03 15:47] LABS: Coronavirus 19, PCR Not Detected (NotDetected); Influenza A, PCR Not Detected (NotDetected); Influenza B, PCR Not Detected (NotDetected)
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
--- OUTSIDE RECORDS SUMMARY | 2025-07-04 14:50 | XMS_ITS | Clinical Summary ---
[facility] Address [address] [place] [address] Care Team Providers Care Clinical Trials Assistant Name Role Phone Evens Cifuentes MD Primary [...] season) 2024 INFLUENZA VACCINE 08/14/2025 Care Teams Clinical Trials Assistant Relationship Specialty Start Date End Date Evens Cifuentes MD PCP - General 07/14/15
== END 2025-07-03 23:59 | disposition home or self-care (01) ==
LOC: LAB.DROPOF 07-04 14:43
PROVIDERS: PCP Nurse Practitioner Family; Visit Provider Nurse Practitioner Family
DX: J06.9 Acute upper respiratory infection, unspecified (principal)
CPT/HCPCS: 87631